=== PATIENT | female | born 1960 | race Hispanic/Latino ===

== ENCOUNTER → 2020-10-21 | Outpatient (CLI) | payer BC ==
[~2020-10-21] VITALS: Ht 157.5 cm; Wt 78.9 kg
[~2020-10-21] MED LIST: REGADENOSON 0.4 MG/5 ML PF SYG IVP SCH
== END | disposition home or self-care (01) ==
LOC: SHCH 08:49
PROVIDERS: ATTEND Internal Medicine Cardiovascular Disease
DX: R05 Cough (principal); R53.83 Other fatigue; R07.9 Chest pain, unspecified
CPT/HCPCS: 78452; 93017; 96374; A9500 ×2; J2785

== ENCOUNTER → 2021-06-03 | Outpatient (CLI) | payer BC | END | disposition home or self-care (01) | LOC: SHCH 08:14 | PROVIDERS: ATTEND Internal Medicine Cardiovascular Disease | DX: I10 Essential (primary) hypertension (principal) | CPT/HCPCS: 93975 ==

== ENCOUNTER 2022-02-19 16:35 | Inpatient (IN) | payer BC ==
[~2022-02-19] VITALS: Ht 157.5 cm; Wt 73.0 kg
[2022-02-19 17:21] LABS: BASOPHILS % (AUTO) 0.4 % (0.0-5.0); HEMATOCRIT 38.1 % (36-48); LYMPHOCYTES % (AUTO) 21.2 % (21.0-51.0); MEAN CORPUSCULAR HEMOGLOBIN 32.4 pg (27.0-33.0); MEAN CORPUSCULAR HGB CONC 33.3 g/dL (32.0-36.0); MEAN CORPUSCULAR VOLUME 97.2 fL (79-99); NEUTROPHILS % (AUTO) 67.1 % (40.0-77.0); PLATELET COUNT (AUTO) 235 K/uL (130-400); RED BLOOD CELL COUNT(AUTO) 3.92 MIL/uL (4.00-5.50); RED CELL DISTRIBUTION WIDTH 13.2 % (11.0-15.5); WHITE BLOOD COUNT (AUTO) 7.8 K/uL (4.8-10.8)
[2022-02-19 17:34] LABS: ALBUMIN 4.3 g/dL (3.5-5.0); CREATININE 1.8 mg/dL (0.5-1.5); POTASSIUM 4.9 mmol/L (3.5-5.1); TOTAL PROTEIN, SERUM 9.4 g/dL (6.0-8.3)
[2022-02-19] MEDS ORDERED: ACETAMINOPHEN 325 MG TAB PO PRN (20:00)
[2022-02-19] MEDS ORDERED: ACETAMINOPHEN WITH CODEINE 1 TAB TAB PO PRN (20:00)
[2022-02-19] MEDS: MORPHINE 2 MG SYG IVP PRN (21:00)
[2022-02-19] MEDS: ONDANSETRON 4MG INJ IVP PRN (21:01)
[2022-02-19 22:04] LABS: INR 0.93 (0.85-1.15); PROTHROMBIN TIME 10.1 SEC (9.6-11.6)
[2022-02-19] MEDS: 0.9%NACL 1000ML 1,000 ML IV SCH (22:59)
[2022-02-19 23:37] VITALS: BP 124/71
[2022-02-19] MEDS ORDERED: ASPI-1197 PO (23:38)
[2022-02-20] VITALS (27 sets, daily range): BP systolic 103–123; BP diastolic 57–89
[2022-02-20] MEDS ORDERED: NAPR-1023 PO (00:11)
[2022-02-20] MEDS ORDERED: AMLO-258 PO (00:11)
[2022-02-20] MEDS ORDERED: METO-409 PO (00:11)
[2022-02-20] MEDS ORDERED: ATOR40TA71 PO (00:12)
[2022-02-20] MEDS ORDERED: LISI20TA24 PO (00:12)
[2022-02-20] MEDS: MORPHINE 2 MG SYG IVP PRN ×3 (03:34→23:03)
[2022-02-20] MEDS ORDERED: ROPIVACAINE 0.5% 5MG/ML 30ML IJ ONE (07:28)
[2022-02-20] MEDS ORDERED: FAMOTIDINE 20MG TAB PO SCH (09:00)
[2022-02-20] MEDS: ENOXAPARIN SODIUM 40 MG/0.4 ML SYRINGE SQ SCH (09:00)
[2022-02-20] MEDS ORDERED: ACETAMINOPHEN WITH CODEINE 1 TAB TAB PO PRN (09:00)
[2022-02-20] MEDS ORDERED: ROCURONIUM 10MG/1ML SYR 10 MG/ML ML ONE (09:20)
[2022-02-20] MEDS ORDERED: PROPOFOL 10 MG/ML 20ML VIAL IV ONE (09:20)
[2022-02-20] MEDS ORDERED: MIDAZOLAM HCL 1 MG/ML 2ML VIAL ONE (09:20)
[2022-02-20] MEDS ORDERED: SUCCINYLCHOLINE 200MG/10ML SYR ONE (09:20)
[2022-02-20] MEDS ORDERED: FENTANYL CITRATE PF 50 MCG/1 ML 2ML VIAL ONE (09:21)
[2022-02-20] MEDS ORDERED: DEXAMETHASONE SOD PHOSPHATE 10MG/ML 1ML VIAL ONE (09:29)
[2022-02-20] MEDS ORDERED: EPHEDRINE SULFATE 50 MG/ML AMPULE ONE (10:25)
[2022-02-20] MEDS ORDERED: GLYCOPYRROLATE 1 MG/5 ML SYRINGE ONE (10:51)
[2022-02-20] MEDS ORDERED: NEOSTIGMINE 5MG/5ML SYR IV ONE (10:51)
[2022-02-20] MEDS ORDERED: DiphenhydrAMINE HCL 50 MG/ML VIAL IVP PRN (11:00)
[2022-02-20] MEDS ORDERED: MEPERIDINE-PF 25 MG/ML SYG ONE (11:42)
[2022-02-20] MEDS: ASPIRIN 81MG CHEW TAB PO SCH (14:39)
[2022-02-20] MEDS: FAMOTIDINE 20MG TAB PO SCH (14:39)
[2022-02-20] MEDS: ACETAMINOPHEN WITH CODEINE 1 TAB TAB PO PRN ×2 (14:40→19:51)
[2022-02-20] MEDS: METOPROLOL SUCCINATE 50 MG TAB.SR.24H PO SCH (14:46)
[2022-02-20] MEDS: 0.9%NACL 1000ML 1,000 ML IV SCH ×2 (14:47→23:03)
[2022-02-20] MEDS: AMLODIPINE 5 MG TAB PO SCH (14:47)
[2022-02-20] MEDS: CEFAZOLIN SODIUM 1 GM VIAL IVP SCH ×2 (16:43→23:03)
[2022-02-20] MEDS: LISINOPRIL 20 MG TABLET PO SCH (19:36)
[2022-02-20] MEDS: ATORVASTATIN 40 MG TABLET PO SCH (19:50)
[2022-02-21 00:09] VITALS: BP 110/77
[2022-02-21] MEDS: ACETAMINOPHEN WITH CODEINE 1 TAB TAB PO PRN ×4 (04:08→17:01)
[2022-02-21 04:31] VITALS: BP 127/70
[2022-02-21 04:44] LABS: BASOPHILS % (AUTO) 0.1 % (0.0-5.0); HEMATOCRIT 28.2 % (36-48); LYMPHOCYTES % (AUTO) 18.6 % (21.0-51.0); MEAN CORPUSCULAR HEMOGLOBIN 31.4 pg (27.0-33.0); MEAN CORPUSCULAR HGB CONC 31.6 g/dL (32.0-36.0); MEAN CORPUSCULAR VOLUME 99.6 fL (79-99); MONOCYTES % (AUTO) 11.7 % (3.0-13.0); NEUTROPHILS % (AUTO) 69.2 % (40.0-77.0); PLATELET COUNT (AUTO) 146 K/uL (130-400); RED BLOOD CELL COUNT(AUTO) 2.83 MIL/uL (4.00-5.50); WHITE BLOOD COUNT (AUTO) 7.8 K/uL (4.8-10.8)
[2022-02-21 05:01] LABS: ALBUMIN 3.2 g/dL (3.5-5.0); CREATININE 1.2 mg/dL (0.5-1.5); MAGNESIUM 1.6 mg/dL (1.80-2.40); POTASSIUM 3.9 mmol/L (3.5-5.1); TOTAL PROTEIN, SERUM 7.1 g/dL (6.0-8.3)
[2022-02-21 08:00] VITALS: BP 136/78
[2022-02-21] MEDS: FAMOTIDINE 20MG TAB PO SCH (08:12)
[2022-02-21] MEDS: ASPIRIN 81MG CHEW TAB PO SCH (08:12)
[2022-02-21] MEDS: ENOXAPARIN SODIUM 40 MG/0.4 ML SYRINGE SQ SCH (08:14)
[2022-02-21] MEDS: FERROUS FUMARATE 324 MG TABLET PO PRN (08:17)
[2022-02-21] MEDS: METOPROLOL SUCCINATE 50 MG TAB.SR.24H PO SCH (09:00)
[2022-02-21] MEDS: AMLODIPINE 5 MG TAB PO SCH (09:00)
[2022-02-21 12:00] VITALS: BP 148/82
[2022-02-21] MEDS: 0.9%NACL 1000ML 1,000 ML IV SCH (15:00)
[2022-02-21 16:00] VITALS: BP 133/91
[2022-02-21 20:00] VITALS: BP 145/85
[2022-02-21] MEDS: LISINOPRIL 20 MG TABLET PO SCH (20:39)
[2022-02-21] MEDS: ATORVASTATIN 40 MG TABLET PO SCH (20:39)
[2022-02-21] MEDS: MORPHINE 2 MG SYG IVP PRN (23:42)
[2022-02-22] VITALS: BP 124/63
[2022-02-22 04:00] VITALS: BP 121/74
[2022-02-22] MEDS: MORPHINE 2 MG SYG IVP PRN (04:54)
[2022-02-22 05:17] LABS: BASOPHILS % (AUTO) 0.4 % (0.0-5.0); EOSINOPHILS % (AUTO) 1.2 % (0.0-8.0); HEMATOCRIT 25.5 % (36-48); LYMPHOCYTES % (AUTO) 26.1 % (21.0-51.0); MEAN CORPUSCULAR HEMOGLOBIN 31.7 pg (27.0-33.0); MEAN CORPUSCULAR HGB CONC 32.2 g/dL (32.0-36.0); MEAN CORPUSCULAR VOLUME 98.5 fL (79-99); MONOCYTES % (AUTO) 10.6 % (3.0-13.0); NEUTROPHILS % (AUTO) 61.3 % (40.0-77.0); PLATELET COUNT (AUTO) 123 K/uL (130-400); RED BLOOD CELL COUNT(AUTO) 2.59 MIL/uL (4.00-5.50); RED CELL DISTRIBUTION WIDTH 12.8 % (11.0-15.5); WHITE BLOOD COUNT (AUTO) 7.3 K/uL (4.8-10.8)
[2022-02-22 05:43] LABS: CREATININE 0.9 mg/dL (0.5-1.5); MAGNESIUM 1.4 mg/dL (1.80-2.40); POTASSIUM 3.8 mmol/L (3.5-5.1); TOTAL PROTEIN, SERUM 6.8 g/dL (6.0-8.3)
[2022-02-22 07:30] VITALS: BP 133/70
[2022-02-22] MEDS: METOPROLOL SUCCINATE 50 MG TAB.SR.24H PO SCH (08:43)
[2022-02-22] MEDS: FAMOTIDINE 20MG TAB PO SCH (08:43)
[2022-02-22] MEDS: ASPIRIN 81MG CHEW TAB PO SCH (08:44)
[2022-02-22] MEDS: ENOXAPARIN SODIUM 40 MG/0.4 ML SYRINGE SQ SCH (08:44)
[2022-02-22] MEDS: FERROUS FUMARATE 324 MG TABLET PO PRN (08:44)
[2022-02-22] MEDS: AMLODIPINE 5 MG TAB PO SCH (09:00)
[2022-02-22] MEDS: MAGNESIUM 2GM PREMIX 50ML 50 ML IV SCH (09:33)
[2022-02-22 11:00] VITALS: BP 98/58
[2022-02-22 16:00] VITALS: BP 111/70
[2022-02-22] MEDS: HYDROCODONE/ACETAMINOPHEN 5/325 MG TAB PO PRN ×2 (16:06→21:28)
[2022-02-22 20:00] VITALS: BP 110/74
[2022-02-22] MEDS: ATORVASTATIN 40 MG TABLET PO SCH (21:28)
[2022-02-22] MEDS: DOCUSATE SODIUM 100 MG CAP PO SCH (21:28)
[2022-02-23] VITALS: BP 113/72
[2022-02-23 04:00] VITALS: BP 119/71
[2022-02-23 04:15] LABS: BASOPHILS % (AUTO) 0.3 % (0.0-5.0); EOSINOPHILS % (AUTO) 2.8 % (0.0-8.0); HEMATOCRIT 23.4 % (36-48); LYMPHOCYTES % (AUTO) 29.4 % (21.0-51.0); MEAN CORPUSCULAR HEMOGLOBIN 31.9 pg (27.0-33.0); MEAN CORPUSCULAR HGB CONC 32.5 g/dL (32.0-36.0); MEAN CORPUSCULAR VOLUME 98.3 fL (79-99); MONOCYTES % (AUTO) 14.7 % (3.0-13.0); NEUTROPHILS % (AUTO) 52.3 % (40.0-77.0); PLATELET COUNT (AUTO) 117 K/uL (130-400); RED BLOOD CELL COUNT(AUTO) 2.38 MIL/uL (4.00-5.50); RED CELL DISTRIBUTION WIDTH 12.9 % (11.0-15.5); WHITE BLOOD COUNT (AUTO) 5.7 K/uL (4.8-10.8)
[2022-02-23 04:37] LABS: ALBUMIN 2.5 g/dL (3.5-5.0); CREATININE 0.8 mg/dL (0.5-1.5); MAGNESIUM 1.9 mg/dL (1.80-2.40); POTASSIUM 3.6 mmol/L (3.5-5.1); TOTAL PROTEIN, SERUM 6.2 g/dL (6.0-8.3)
[2022-02-23] MEDS ORDERED: KCL 20 MEQ ERTAB PO ONE (05:19)
[2022-02-23] MEDS: MAGNESIUM 2GM PREMIX 50ML 50 ML IV SCH (05:21)
[2022-02-23] MEDS: HYDROCODONE/ACETAMINOPHEN 5/325 MG TAB PO PRN ×3 (05:56→23:31)
[2022-02-23 07:30] VITALS: BP 112/77
[2022-02-23] MEDS: ASPIRIN 81MG CHEW TAB PO SCH (09:32)
[2022-02-23] MEDS: FAMOTIDINE 20MG TAB PO SCH (09:32)
[2022-02-23] MEDS: DOCUSATE SODIUM 100 MG CAP PO SCH ×2 (09:32→20:24)
[2022-02-23] MEDS: POLYETHYLENE GLYCOL 3350 17 GM POWD.PACK PO SCH (09:33)
[2022-02-23] MEDS: FERROUS FUMARATE 324 MG TABLET PO PRN (09:37)
[2022-02-23] MEDS: ONDANSETRON 4MG INJ IVP PRN (10:07)
[2022-02-23] MEDS: ENOXAPARIN SODIUM 40 MG/0.4 ML SYRINGE SQ SCH (10:08)
[2022-02-23 11:00] VITALS: BP 108/78
[2022-02-23] MEDS ORDERED: APIX2.5T PO (13:16)
[2022-02-23 16:00] VITALS: BP 104/77
[2022-02-23] MEDS ORDERED: LACTULOSE 20 GM/30 ML UDCUP PO PRN (16:00)
[2022-02-23 19:00] VITALS: BP 123/82
[2022-02-23] MEDS: MORPHINE 4 MG SYG IVP PRN (20:24)
[2022-02-23] MEDS: APIXABAN 2.5 MG TABLET PO SCH (20:24)
[2022-02-23] MEDS: ATORVASTATIN 40 MG TABLET PO SCH (20:24)
[2022-02-24] VITALS: BP 111/81
[2022-02-24] MEDS: MORPHINE 4 MG SYG IVP PRN (00:36)
[2022-02-24 04:00] VITALS: BP 123/68
[2022-02-24 05:00] LABS: BASOPHILS % (AUTO) 0.2 % (0.0-5.0); HEMATOCRIT 21.8 % (36-48); MEAN CORPUSCULAR VOLUME 96.9 fL (79-99); MONOCYTES % (AUTO) 20.1 % (3.0-13.0); PLATELET COUNT (AUTO) 170 K/uL (130-400); RED BLOOD CELL COUNT(AUTO) 2.25 MIL/uL (4.00-5.50)
[2022-02-24 05:11] LABS: CREATININE 0.8 mg/dL (0.5-1.5); POTASSIUM 3.1 mmol/L (3.5-5.1)
[2022-02-24] MEDS ORDERED: POTASSIUM CHLORIDE 10% ELIXIR 20 MEQ/15 ML UDCUP PO PRN (05:30)
[2022-02-24] MEDS ORDERED: LIDOCAINE HCL-MPF 1% 2ML VIAL IV PRN (05:30)
[2022-02-24] MEDS ORDERED: POTASSIUM CHLORIDE 20MEQ/100ML 100 ML IV PRN (05:30)
[2022-02-24] MEDS: KCL 20 MEQ ERTAB PO PRN ×2 (05:50→06:32)
[2022-02-24] MEDS ORDERED: KCL 20 MEQ ERTAB PO SCH (06:30)
[2022-02-24 07:55] VITALS: BP 129/78
[2022-02-24] MEDS: FAMOTIDINE 20MG TAB PO SCH (08:37)
[2022-02-24] MEDS: APIXABAN 2.5 MG TABLET PO SCH (08:37)
[2022-02-24] MEDS: ASPIRIN 81MG CHEW TAB PO SCH (08:37)
[2022-02-24] MEDS: DOCUSATE SODIUM 100 MG CAP PO SCH (08:37)
[2022-02-24] MEDS: POLYETHYLENE GLYCOL 3350 17 GM POWD.PACK PO SCH (08:37)
[2022-02-24] MEDS: HYDROCODONE/ACETAMINOPHEN 5/325 MG TAB PO PRN (08:38)
[2022-02-24 11:11] VITALS: BP 121/76
== END 2022-02-24 12:59 | DRG 521 ==
LOC: EDH 16:35 → EDHIP 19:59 → 4BH 23:19 → 4DH 02-20 08:22
PROVIDERS: ADMIT Hospitalist; ATTEND Hospitalist
PROC: 0SRR0JZ Replacement of Right Hip Joint, Femoral Surface with Synthetic Substitute, Open Approach (ICD-10-PCS; principal; 2022-02-20 09:12)
DX: S72.001A Fracture of unspecified part of neck of right femur, initial encounter for closed fracture (principal); N17.0 Acute kidney failure with tubular necrosis; E78.00 Pure hypercholesterolemia, unspecified; D64.9 Anemia, unspecified; Z20.822 Contact with and (suspected) exposure to COVID-19; I10 Essential (primary) hypertension; W01.0XXA Fall on same level from slipping, tripping and stumbling without subsequent striking against object, initial encounter; Z91.81 History of falling; Z90.49 Acquired absence of other specified parts of digestive tract; Y93.89 Activity, other specified; Y92.89 Other specified places as the place of occurrence of the external cause; Y99.8 Other external cause status
CPT/HCPCS: 36415; 71045; 73503; 73700; 80048; 80053; 83735; 85025; 85610; 87635; 93005; 97039; C9803; G0378; J0330; J0690; J1100; J1200; J1650; J2175; J2250; J2270; J2405; J2704; J2710; J2795; J3010; J3475; J3490; J7120

== ENCOUNTER → 2022-02-19 | Outpatient (CLI) | payer BC ==
[~2022-02-19] MED LIST changes: +AMLO-258 PO; +ASPI-1197 PO; +ATOR40TA71 PO; +LISI20TA24 PO; +METO-409 PO; +NAPR-1023 PO; -REGADENOSON 0.4 MG/5 ML PF SYG IVP SCH
== END | disposition home or self-care (01) ==
LOC: RAH 15:09
PROVIDERS: ATTEND Obstetrics & Gynecology
DX: S70.01XA Contusion of right hip, initial encounter (principal); X58.XXXA Exposure to other specified factors, initial encounter; Y93.89 Activity, other specified; Y92.89 Other specified places as the place of occurrence of the external cause; Y99.8 Other external cause status
CPT/HCPCS: 73700

== ENCOUNTER 2022-03-26 20:31 | Emergency (ER) | payer BC ==
[~2022-03-26] VITALS: Ht 157.5 cm; Wt 70.8 kg
[~2022-03-26 20:31] MED LIST changes: +APIX2.5T PO
[2022-03-26 21:06] LABS: BASOPHILS % (AUTO) 0.4 % (0.0-5.0); EOSINOPHILS % (AUTO) 0.7 % (0.0-8.0); HEMATOCRIT 36.1 % (36-48); MEAN CORPUSCULAR HEMOGLOBIN 31.1 pg (27.0-33.0); MEAN CORPUSCULAR HGB CONC 32.7 g/dL (32.0-36.0); MEAN CORPUSCULAR VOLUME 95.3 fL (79-99); MONOCYTES % (AUTO) 9.5 % (3.0-13.0); NEUTROPHILS % (AUTO) 34.2 % (40.0-77.0); PLATELET COUNT (AUTO) 267 K/uL (130-400); RED BLOOD CELL COUNT(AUTO) 3.79 MIL/uL (4.00-5.50); WHITE BLOOD COUNT (AUTO) 8.3 K/uL (4.8-10.8)
[2022-03-26 21:24] LABS: CREATININE 0.7 mg/dL (0.5-1.5); POTASSIUM 3.4 mmol/L (3.5-5.1)
[2022-03-26 21:32] LABS: ALBUMIN 3.3 g/dL (3.5-5.0); TOTAL PROTEIN, SERUM 7.8 g/dL (6.0-8.3)
[2022-03-26] MEDS ORDERED: ASPIRIN 81MG CHEW TAB PO STA (23:07)
[2022-03-26] MEDS ORDERED: NITROGLYCERIN 1GM OINT 1 INCH/1GM TD ONE (23:30)
[2022-03-27] MEDS ORDERED: KETOROLAC 30MG VIAL (30MG/ML) IVP ONE
[2022-03-27 04:59] VITALS: BP 158/74
== END 2022-03-27 05:22 | disposition home or self-care (01) ==
LOC: EDH 20:31
DX: R07.89 Other chest pain (principal); M25.561 Pain in right knee; E78.00 Pure hypercholesterolemia, unspecified; I10 Essential (primary) hypertension; Z88.5 Allergy status to narcotic agent; Z88.8 Allergy status to other drugs, medicaments and biological substances; Z79.01 Long term (current) use of anticoagulants; Z79.1 Long term (current) use of non-steroidal anti-inflammatories (NSAID); Z79.82 Long term (current) use of aspirin
CPT/HCPCS: 36415; 71045; 80053; 84484; 85025; 93005; 96374; J1885

== ENCOUNTER 2022-08-31 14:01 | Emergency (ER) | payer BC ==
[~2022-08-31] VITALS: Ht 157.5 cm; Wt 76.2 kg
[2022-08-31] MEDS ORDERED: IBUP-2070 PO (15:17)
[2022-08-31 15:49] VITALS: BP 131/72
[2022-08-31] MEDS ORDERED: KETOROLAC 60 MG VIAL (30MG/ML) IM ONE (16:00)
== END 2022-08-31 16:07 | disposition home or self-care (01) ==
LOC: EDH 14:01
DX: S30.0XXA Contusion of lower back and pelvis, initial encounter (principal); S09.90XA Unspecified injury of head, initial encounter; E78.00 Pure hypercholesterolemia, unspecified; I10 Essential (primary) hypertension; Z79.01 Long term (current) use of anticoagulants; Z79.1 Long term (current) use of non-steroidal anti-inflammatories (NSAID); Z79.82 Long term (current) use of aspirin; Z79.899 Other long term (current) drug therapy; Z88.5 Allergy status to narcotic agent; Z88.8 Allergy status to other drugs, medicaments and biological substances; W01.0XXA Fall on same level from slipping, tripping and stumbling without subsequent striking against object, initial encounter; Y93.89 Activity, other specified; Y92.89 Other specified places as the place of occurrence of the external cause; Y99.8 Other external cause status
CPT/HCPCS: 99284; 70450; 72170; 72220; 96372; 93005; J1885

== ENCOUNTER 2022-09-05 17:28 | Emergency (ER) | payer BC ==
[~2022-09-05] VITALS: Ht 157.5 cm; Wt 72.6 kg
[~2022-09-05 17:28] MED LIST changes: +IBUP-2070 PO
[2022-09-05 17:56] LABS: BASOPHILS % (AUTO) 0.7 % (0.0-5.0); EOSINOPHILS % (AUTO) 0.3 % (0.0-8.0); HEMATOCRIT 35.7 % (36-48); LYMPHOCYTES % (AUTO) 16.6 % (21.0-51.0); MEAN CORPUSCULAR HGB CONC 34.2 g/dL (32.0-36.0); MEAN CORPUSCULAR VOLUME 96.5 fL (79-99); MONOCYTES % (AUTO) 15.2 % (3.0-13.0); NEUTROPHILS % (AUTO) 66.9 % (40.0-77.0); PLATELET COUNT (AUTO) 244 K/uL (130-400); RED CELL DISTRIBUTION WIDTH 14.4 % (11.0-15.5); WHITE BLOOD COUNT (AUTO) 7.1 K/uL (4.8-10.8)
[2022-09-05 18:12] LABS: POTASSIUM 3.1 mmol/L (3.5-5.1)
[2022-09-05 18:19] LABS: ALBUMIN 2.8 g/dL (3.5-5.0); TOTAL PROTEIN, SERUM 7.3 g/dL (6.0-8.3)
[2022-09-05 19:23] LABS: APPEARANCE,URINE CLOUDY (CLEAR); BILIRUBIN,URINE 1 mg/dL (NEGATIVE); COLOR,URINE DARK-YELLOW (YELLOW); GLUCOSE, URINE (UA) 30 mg/dL (NEGATIVE); KETONES,URINE 5 mg/dL (NEGATIVE); LEUKOCYTE ESTERASE ,URINE NEGATIVE Leu/uL (NEGATIVE); NITRATE,URINE NEGATIVE (NEGATIVE); OCCULT BLOOD,URINE NEGATIVE (NEGATIVE); PROTEIN,URINE 50 mg/dL (NEGATIVE); UROBILINOGEN,URINE 6 mg/dL (0.2-1.0)
[2022-09-05 19:26] LABS: MUCUS,URINE RARE LPF (None Seen)
[2022-09-05 21:57] VITALS: BP 136/80
== END 2022-09-05 22:01 | disposition left against medical advice (07) ==
LOC: EDH 17:28
DX: R74.8 Abnormal levels of other serum enzymes (principal); I10 Essential (primary) hypertension; E78.00 Pure hypercholesterolemia, unspecified; Z79.82 Long term (current) use of aspirin; Z90.49 Acquired absence of other specified parts of digestive tract; Z79.899 Other long term (current) drug therapy; Z88.5 Allergy status to narcotic agent; Z88.8 Allergy status to other drugs, medicaments and biological substances; Z91.040 Latex allergy status
CPT/HCPCS: 36415; 70450; 71045; 73522; 76705; 80053; 81001; 84484; 85025; 93005

== ENCOUNTER 2022-09-26 09:02 | Emergency (ER) | payer BC ==
[~2022-09-26] VITALS: Ht 157.5 cm; Wt 72.6 kg
[2022-09-26 09:11] VITALS: BP 171/103
[2022-09-26] MEDS ORDERED: KETOROLAC 60 MG VIAL (30MG/ML) IM ONE (10:00)
[2022-09-26] MEDS ORDERED: GABA300C PO (11:50)
[2022-09-26] MEDS ORDERED: GABAPENTIN 300 MG CAPSULE PO SCH (12:00)
== END 2022-09-26 12:06 | disposition home or self-care (01) ==
LOC: EDH 09:02
DX: B02.9 Zoster without complications (principal); B02.29 Other postherpetic nervous system involvement; I10 Essential (primary) hypertension; E78.00 Pure hypercholesterolemia, unspecified; Z90.89 Acquired absence of other organs; Z88.5 Allergy status to narcotic agent; Z88.8 Allergy status to other drugs, medicaments and biological substances; Z79.899 Other long term (current) drug therapy
CPT/HCPCS: 99283; 96372; J1885

== ENCOUNTER 2022-10-02 08:57 | Emergency (ER) | payer BC ==
[~2022-10-02] VITALS: Ht 157.5 cm; Wt 72.6 kg
[~2022-10-02 08:57] MED LIST changes: +GABA300C PO
[2022-10-02 12:07] VITALS: BP 158/89
== END 2022-10-02 12:40 | disposition home or self-care (01) ==
LOC: EDH 08:57
DX: B02.29 Other postherpetic nervous system involvement (principal); I10 Essential (primary) hypertension; E78.00 Pure hypercholesterolemia, unspecified; Z88.5 Allergy status to narcotic agent; Z88.8 Allergy status to other drugs, medicaments and biological substances; Z79.899 Other long term (current) drug therapy; Z90.89 Acquired absence of other organs

== ENCOUNTER 2022-10-09 02:52 | Emergency (ER) | payer BC ==
[~2022-10-09] VITALS: Ht 157.5 cm; Wt 72.6 kg
[2022-10-09] MEDS ORDERED: KETOROLAC 30MG VIAL (30MG/ML) ONE ×2 (05:37→06:23)
[2022-10-09] MEDS ORDERED: DIAZEPAM 5 MG TABLET ONE (05:37)
[2022-10-09] MEDS ORDERED: HYDROCODONE/ACETAMINOPHEN 5/325 MG TAB ONE ×2 (05:37→06:23)
[2022-10-09] MEDS ORDERED: KETOROLAC 30MG VIAL (30MG/ML) IM ONE (06:30)
[2022-10-09] MEDS ORDERED: HYDROCODONE/ACETAMINOPHEN 5/325 MG TAB PO ONE (06:30)
[2022-10-09 07:56] VITALS: BP 175/85
[2022-10-09] MEDS ORDERED: TRAMADOL HCL 50 MG TABLET PO SCH (09:00)
[2022-10-09] MEDS ORDERED: GABA-529 PO (09:17)
== END 2022-10-09 10:28 | disposition home or self-care (01) ==
LOC: EDH 02:52
DX: B02.29 Other postherpetic nervous system involvement (principal); I10 Essential (primary) hypertension; E78.00 Pure hypercholesterolemia, unspecified; Z88.5 Allergy status to narcotic agent; Z88.8 Allergy status to other drugs, medicaments and biological substances; Z79.899 Other long term (current) drug therapy; Z90.89 Acquired absence of other organs
CPT/HCPCS: 99284; 96372; J1885 ×2

== ENCOUNTER 2022-10-11 02:41 | Emergency (ER) | payer BC ==
[~2022-10-11] VITALS: Ht 157.5 cm; Wt 72.6 kg
[~2022-10-11 02:41] MED LIST changes: +GABA-529 PO
[2022-10-11 02:46] VITALS: BP 145/78
[2022-10-11] MEDS ORDERED: ACETAMINOPHEN 500 MG TABLET PO ONE (05:30)
== END 2022-10-11 05:50 | disposition home or self-care (01) ==
LOC: EDH 02:41
DX: B02.29 Other postherpetic nervous system involvement (principal); B02.9 Zoster without complications; I10 Essential (primary) hypertension; E78.00 Pure hypercholesterolemia, unspecified; Z79.82 Long term (current) use of aspirin; Z79.899 Other long term (current) drug therapy; Z90.49 Acquired absence of other specified parts of digestive tract; Z76.5 Malingerer [conscious simulation]; Z88.5 Allergy status to narcotic agent; Z88.8 Allergy status to other drugs, medicaments and biological substances; Z91.040 Latex allergy status; Z98.890 Other specified postprocedural states
CPT/HCPCS: 99282

== ENCOUNTER 2022-10-31 20:37 | Emergency (ER) | payer BC ==
[~2022-10-31] VITALS: Ht 157.5 cm; Wt 72.6 kg
[2022-10-31 22:00] LABS: BASOPHILS % (AUTO) 0.6 % (0.0-5.0); HEMATOCRIT 35.5 % (36-48); MEAN CORPUSCULAR HGB CONC 33.8 g/dL (32.0-36.0); MEAN CORPUSCULAR VOLUME 103.5 fL (79-99); MONOCYTES % (AUTO) 7.7 % (3.0-13.0); NEUTROPHILS % (AUTO) 80.5 % (40.0-77.0); PLATELET COUNT (AUTO) 311 K/uL (130-400); RED BLOOD CELL COUNT(AUTO) 3.43 MIL/uL (4.00-5.50); RED CELL DISTRIBUTION WIDTH 13.5 % (11.0-15.5)
[2022-10-31 22:18] LABS: ALANINE AMINOTRANSFERASE 60 U/L (12-78); ALBUMIN 3.3 g/dL (3.5-5.0); ASPARTATE AMINOTRANSFERASE 135 U/L (10-37); CARBON DIOXIDE 22 mmol/L (21-32); CREATINE KINASE, TOTAL 95 U/L (21-232); GLOMERULAR FILTR. RATE CALC 63 mL/min (>90); GLUCOSE,RANDOM 90 mg/dL (70-105); POTASSIUM 3.7 mmol/L (3.5-5.1); SODIUM SERUM 130 mmol/L (136-145); TOTAL PROTEIN, SERUM 8.3 g/dL (6.0-8.3); UREA NITROGEN, BLOOD 5 mg/dL (7-18)
[2022-10-31 22:39] LABS: ACETAMINOPHEN < 1 mcg/mL (10-30); CHLORIDE 89 mmol/L (101-111); SALICYLATE < 2.8 mg/dL (2.8-20.0)
[2022-10-31 22:56] LABS: APPEARANCE,URINE CLOUDY (CLEAR); BILIRUBIN,URINE NEGATIVE (NEGATIVE); COLOR,URINE YELLOW (YELLOW); GLUCOSE, URINE (UA) NEGATIVE (NEGATIVE); KETONES,URINE >=80 mg/dL (NEGATIVE); LEUKOCYTE ESTERASE ,URINE 25 Leu/uL (NEGATIVE); NITRATE,URINE NEGATIVE (NEGATIVE); OCCULT BLOOD,URINE NEGATIVE (NEGATIVE); PH,URINE 5.5 (5.0-8.0); PROTEIN,URINE 50 mg/dL (NEGATIVE)
[2022-10-31 23:02] LABS: BACTERIA,URINE RARE /HPF (None Seen); HYALINE CASTS, URINE 51-100 /LPF (0-1 /LPF); MUCUS,URINE MOD LPF (None Seen); SQUAMOUS EPITHELIAL CELL,UR MOD /HPF (0-2)
[2022-10-31 23:14] LABS: AMPHET/METH SCREEN,URINE NEGATIVE (NEGATIVE); BARBITURATE SCREEN, URINE NEGATIVE (NEGATIVE); BENZODIAZEPINES SCREEN,URINE NEGATIVE (NEGATIVE); CANNABINOID SCREEN,URINE NEGATIVE (NEGATIVE); COCAINE SCREEN,URINE NEGATIVE (NEGATIVE); OPIATE SCREEN,URINE POSITIVE (NEGATIVE); PHENCYCLIDINE SCREEN,URINE NEGATIVE (NEGATIVE)
[2022-10-31] MEDS ORDERED: 0.9%NACL 1000ML 2,000 ML IV ONE (23:30)
[2022-10-31] MEDS ORDERED: 0.9%NACL 1000ML 1,000 ML IV SCH ×2 (23:30)
[2022-10-31 23:52] VITALS: BP 143/81
== END 2022-11-01 00:44 | disposition home or self-care (01) ==
LOC: EDH 20:37
DX: E86.0 Dehydration (principal); I10 Essential (primary) hypertension; Z79.01 Long term (current) use of anticoagulants; Z79.82 Long term (current) use of aspirin; Z79.899 Other long term (current) drug therapy; Z88.5 Allergy status to narcotic agent; Z88.8 Allergy status to other drugs, medicaments and biological substances; Z90.49 Acquired absence of other specified parts of digestive tract
CPT/HCPCS: 99284; 96360; 70450; 96361; 82550; 80053; 80305; 85025; 81001; 36415; 93005; G0481; J7030

== ENCOUNTER 2022-11-19 00:51 | Inpatient (IN) | payer BC ==
[~2022-11-19] VITALS: Ht 158.8 cm; Wt 80.7 kg
[2022-11-19] MEDS ORDERED: ACETAMINOPHEN 325 MG TAB PO PRN ×2 (03:00)
[2022-11-19] MEDS ORDERED: POTASSIUM CHLORIDE 10% ELIXIR 20 MEQ/15 ML UDCUP PO PRN (03:00)
[2022-11-19] MEDS ORDERED: POTASSIUM CHLORIDE 20MEQ/100ML 100 ML IV PRN (03:00)
[2022-11-19] MEDS ORDERED: HYDROMORPHONE 1 MG INJ IV PRN (03:00)
[2022-11-19] MEDS ORDERED: ONDANSETRON 4MG INJ IV PRN (03:00)
[2022-11-19 03:15] VITALS: BP 121/79
[2022-11-19 03:18] LABS: BASOPHILS % (AUTO) 0.6 % (0.0-5.0); EOSINOPHILS % (AUTO) 0.1 % (0.0-8.0); HEMATOCRIT 36.1 % (36-48); LYMPHOCYTES % (AUTO) 20.5 % (21.0-51.0); MEAN CORPUSCULAR HEMOGLOBIN 34.3 pg (27.0-33.0); MEAN CORPUSCULAR HGB CONC 33.8 g/dL (32.0-36.0); MEAN CORPUSCULAR VOLUME 101.4 fL (79-99); MONOCYTES % (AUTO) 8.5 % (3.0-13.0); PLATELET COUNT (AUTO) 263 K/uL (130-400); RED BLOOD CELL COUNT(AUTO) 3.56 MIL/uL (4.00-5.50); RED CELL DISTRIBUTION WIDTH 13.3 % (11.0-15.5); WHITE BLOOD COUNT (AUTO) 8.7 K/uL (4.8-10.8)
[2022-11-19] MEDS ORDERED: PHARMACY COMMUNICATION MISC PRN (03:30)
[2022-11-19] MEDS ORDERED: LORAZEPAM 2 MG/ML 1 ML VIAL IVP PRN (03:30)
[2022-11-19 03:31] LABS: ALBUMIN 2.5 g/dL (3.5-5.0); CREATININE 0.9 mg/dL (0.5-1.5); MAGNESIUM 1.2 mg/dL (1.80-2.40); PHOSPHORUS 2.6 mg/dL (2.5-4.9); POTASSIUM 3.3 mmol/L (3.5-5.1); TOTAL PROTEIN, SERUM 6.7 g/dL (6.0-8.3)
[2022-11-19 03:37] LABS: INR 1.1 (0.85-1.15); PROTHROMBIN TIME 12.7 SEC (9.6-11.6)
[2022-11-19 03:38] LABS: PARTIAL THROMBOPLASTIN TIME 27.2 SEC (26.3-35.5)
[2022-11-19 03:42] LABS: B-TYPE NATRIURETIC PEPTIDE 191 pg/mL (0-100)
[2022-11-19 04:04] LABS: APPEARANCE,URINE CLEAR (CLEAR); BILIRUBIN,URINE NEGATIVE (NEGATIVE); COLOR,URINE YELLOW (YELLOW); GLUCOSE, URINE (UA) NEGATIVE (NEGATIVE); KETONES,URINE NEGATIVE (NEGATIVE); LEUKOCYTE ESTERASE ,URINE NEGATIVE Leu/uL (NEGATIVE); NITRATE,URINE NEGATIVE (NEGATIVE); OCCULT BLOOD,URINE NEGATIVE (NEGATIVE); PH,URINE 6.5 (5.0-8.0); PROTEIN,URINE NEGATIVE (NEGATIVE); UROBILINOGEN,URINE 3 mg/dL (0.2-1.0)
[2022-11-19 04:17] LABS: MUCUS,URINE RARE LPF (None Seen); RBC,URINE 0-1 /HPF (0-1); SQUAMOUS EPITHELIAL CELL,UR FEW /HPF (0-2)
[2022-11-19] MEDS: CHLORDIAZEPOXIDE HCL 25 MG CAP PO SCH ×3 (04:51→21:33)
[2022-11-19] MEDS: KCL 20 MEQ ERTAB PO PRN ×3 (04:55→13:55)
[2022-11-19] MEDS: MAGNESIUM 2GM PREMIX 50ML 50 ML IV PRN ×2 (04:56→07:28)
[2022-11-19 08:00] VITALS: BP 133/99
[2022-11-19] MEDS: FAMOTIDINE 20MG TAB PO SCH (08:08)
[2022-11-19] MEDS: ZOSYN 3.375GM+NS 50ML 50 ML IVPB SCH ×3 (08:08→20:43)
[2022-11-19] MEDS: ENOXAPARIN SODIUM 40 MG/0.4 ML SYRINGE SQ SCH (08:08)
[2022-11-19] MEDS: THIAMINE HCL 100 MG, FOLIC ACID 1 MG, M.V.I. IV [ADULT] 10 ML in 0.9%NACL 1000ML 1,000 ML IV SCH (09:38)
[2022-11-19] MEDS: HYDROCODONE/ACETAMINOPHEN 5/325 MG TAB PO PRN (09:46)
[2022-11-19 11:27] VITALS: BP 131/79
[2022-11-19 16:32] VITALS: BP 128/96
[2022-11-19 19:00] VITALS: BP 140/97
[2022-11-19] MEDS ORDERED: HYDROMORPHONE 0.5 MG SYG (0.5MG/0.5ML) ONE (23:29)
[2022-11-19] MEDS ORDERED: HYDROMORPHONE 0.5 MG SYG (0.5MG/0.5ML) IVP PRN (23:30)
[2022-11-20] VITALS: BP 158/54
[2022-11-20] MEDS: CHLORDIAZEPOXIDE HCL 25 MG CAP PO SCH ×3 (03:57→19:54)
[2022-11-20 04:00] VITALS: BP 149/92
[2022-11-20] MEDS: 0.9%NACL 1000ML 1,000 ML IV SCH ×2 (04:00→15:56)
[2022-11-20] MEDS: ZOSYN 3.375GM+NS 50ML 50 ML IVPB SCH ×3 (05:10→21:31)
[2022-11-20 06:39] LABS: BASOPHILS % (AUTO) 0.5 % (0.0-5.0); EOSINOPHILS % (AUTO) 1.2 % (0.0-8.0); HEMATOCRIT 34.7 % (36-48); LYMPHOCYTES % (AUTO) 33.3 % (21.0-51.0); MEAN CORPUSCULAR HEMOGLOBIN 34.2 pg (27.0-33.0); MEAN CORPUSCULAR HGB CONC 32.6 g/dL (32.0-36.0); MEAN CORPUSCULAR VOLUME 105.2 fL (79-99); NEUTROPHILS % (AUTO) 55.6 % (40.0-77.0); PLATELET COUNT (AUTO) 206 K/uL (130-400); RED CELL DISTRIBUTION WIDTH 13.3 % (11.0-15.5); WHITE BLOOD COUNT (AUTO) 7.3 K/uL (4.8-10.8)
[2022-11-20 06:48] LABS: CREATININE 0.7 mg/dL (0.5-1.5); POTASSIUM 3.1 mmol/L (3.5-5.1)
[2022-11-20 07:43] VITALS: BP 143/92
[2022-11-20] MEDS: FAMOTIDINE 20MG TAB PO SCH (08:03)
[2022-11-20] MEDS: ENOXAPARIN SODIUM 40 MG/0.4 ML SYRINGE SQ SCH (08:04)
[2022-11-20] MEDS: KCL 20 MEQ ERTAB PO PRN ×3 (09:11→13:02)
[2022-11-20] MEDS: THIAMINE HCL 100 MG, FOLIC ACID 1 MG, M.V.I. IV [ADULT] 10 ML in 0.9%NACL 1000ML 1,000 ML IV SCH (09:11)
[2022-11-20] MEDS: MAGNESIUM 2GM PREMIX 50ML 50 ML IV PRN (11:10)
[2022-11-20 11:23] VITALS: BP 162/101
[2022-11-20 16:40] VITALS: BP 159/102
[2022-11-20] MEDS ORDERED: LORAZEPAM 2 MG/ML 1 ML VIAL IVP ONE (23:00)
[2022-11-21] VITALS: BP 125/75
[2022-11-21] MEDS: CHLORDIAZEPOXIDE HCL 25 MG CAP PO SCH ×2 (03:14→11:30)
[2022-11-21] MEDS: HYDROCODONE/ACETAMINOPHEN 5/325 MG TAB PO PRN ×2 (03:14→19:50)
[2022-11-21] MEDS: THIAMINE HCL 100 MG, FOLIC ACID 1 MG, M.V.I. IV [ADULT] 10 ML in 0.9%NACL 1000ML 1,000 ML IV SCH (03:30)
[2022-11-21 04:01] VITALS: BP 157/89
[2022-11-21] MEDS: ZOSYN 3.375GM+NS 50ML 50 ML IVPB SCH ×3 (05:34→19:50)
[2022-11-21] MEDS: 0.9%NACL 1000ML 1,000 ML IV SCH ×3 (07:30→19:53)
[2022-11-21 08:00] VITALS: BP 145/100
[2022-11-21] MEDS: FAMOTIDINE 20MG TAB PO SCH (08:54)
[2022-11-21] MEDS: ENOXAPARIN SODIUM 40 MG/0.4 ML SYRINGE SQ SCH (08:57)
[2022-11-21] MEDS: AMLODIPINE 5 MG TAB PO SCH (08:59)
[2022-11-21] MEDS ORDERED: NON-FORMULARY MEDICATION 1 EACH (Amlodipine Besylate 1 TAB) PO SCH (09:00)
[2022-11-21 12:00] VITALS: BP 157/86
[2022-11-21] MEDS ORDERED: CHLORDIAZEPOXIDE HCL 25 MG CAP PO PRN ×2 (12:00)
[2022-11-21] MEDS ORDERED: LORAZEPAM 2 MG/ML 1 ML VIAL IVP PRN (12:00)
[2022-11-21] MEDS ORDERED: PHARMACY COMMUNICATION MISC PRN (12:00)
[2022-11-21 16:00] VITALS: BP 123/86
[2022-11-21] MEDS: LISINOPRIL 20 MG TABLET PO SCH (19:49)
[2022-11-21 20:00] VITALS: BP 134/83
[2022-11-22] VITALS (7 sets, daily range): BP systolic 112–150; BP diastolic 66–107
[2022-11-22 04:06] LABS: BASOPHILS % (AUTO) 0.5 % (0.0-5.0); EOSINOPHILS % (AUTO) 2.3 % (0.0-8.0); HEMATOCRIT 30.4 % (36-48); LYMPHOCYTES % (AUTO) 32.5 % (21.0-51.0); MEAN CORPUSCULAR HEMOGLOBIN 33.9 pg (27.0-33.0); MEAN CORPUSCULAR HGB CONC 31.9 g/dL (32.0-36.0); MEAN CORPUSCULAR VOLUME 106.3 fL (79-99); MONOCYTES % (AUTO) 10.2 % (3.0-13.0); NEUTROPHILS % (AUTO) 54.2 % (40.0-77.0); PLATELET COUNT (AUTO) 179 K/uL (130-400); RED BLOOD CELL COUNT(AUTO) 2.86 MIL/uL (4.00-5.50); RED CELL DISTRIBUTION WIDTH 13.9 % (11.0-15.5); WHITE BLOOD COUNT (AUTO) 6.2 K/uL (4.8-10.8)
[2022-11-22 04:16] LABS: CARBON DIOXIDE 27 mmol/L (21-32); CHLORIDE 107 mmol/L (101-111); CREATININE 0.7 mg/dL (0.5-1.5); GLOMERULAR FILTR. RATE CALC 97 mL/min (>90); GLUCOSE,RANDOM 82 mg/dL (70-105); PHOSPHORUS 2.8 mg/dL (2.5-4.9); POTASSIUM 3.8 mmol/L (3.5-5.1); SODIUM SERUM 137 mmol/L (136-145)
[2022-11-22] MEDS: 0.9%NACL 1000ML 1,000 ML IV SCH ×3 (04:19→21:19)
[2022-11-22] MEDS: ZOSYN 3.375GM+NS 50ML 50 ML IVPB SCH ×3 (04:19→20:59)
[2022-11-22] MEDS: KCL 20 MEQ ERTAB PO PRN ×2 (05:24→08:30)
[2022-11-22] MEDS: MAGNESIUM 2GM PREMIX 50ML 50 ML IV PRN (05:24)
[2022-11-22] MEDS: HYDROCODONE/ACETAMINOPHEN 5/325 MG TAB PO PRN ×2 (05:25→21:02)
[2022-11-22 06:07] LABS: UREA NITROGEN, BLOOD < 5 mg/dL (7-18)
[2022-11-22] MEDS: AMLODIPINE 5 MG TAB PO SCH (08:30)
[2022-11-22] MEDS: FAMOTIDINE 20MG TAB PO SCH (08:31)
[2022-11-22] MEDS: ENOXAPARIN SODIUM 40 MG/0.4 ML SYRINGE SQ SCH (08:32)
[2022-11-22] MEDS: LISINOPRIL 20 MG TABLET PO SCH (20:38)
[2022-11-23 00:34] LABS: AMPHET/METH SCREEN,URINE NEGATIVE (NEGATIVE); BARBITURATE SCREEN, URINE NEGATIVE (NEGATIVE); BENZODIAZEPINES SCREEN,URINE POSITIVE (NEGATIVE); CANNABINOID SCREEN,URINE NEGATIVE (NEGATIVE); COCAINE SCREEN,URINE NEGATIVE (NEGATIVE); OPIATE SCREEN,URINE NEGATIVE (NEGATIVE); PHENCYCLIDINE SCREEN,URINE NEGATIVE (NEGATIVE)
[2022-11-23] MEDS: 0.9%NACL 1000ML 1,000 ML IV SCH (02:38)
[2022-11-23 03:36] VITALS: BP 147/97
[2022-11-23] MEDS: ZOSYN 3.375GM+NS 50ML 50 ML IVPB SCH (04:09)
[2022-11-23 05:29] LABS: BASOPHILS % (AUTO) 0.5 % (0.0-5.0); EOSINOPHILS % (AUTO) 3.2 % (0.0-8.0); HEMATOCRIT 30.1 % (36-48); MEAN CORPUSCULAR HEMOGLOBIN 34.3 pg (27.0-33.0); MEAN CORPUSCULAR HGB CONC 32.6 g/dL (32.0-36.0); MEAN CORPUSCULAR VOLUME 105.2 fL (79-99); MONOCYTES % (AUTO) 13.1 % (3.0-13.0); PLATELET COUNT (AUTO) 203 K/uL (130-400); RED BLOOD CELL COUNT(AUTO) 2.86 MIL/uL (4.00-5.50); RED CELL DISTRIBUTION WIDTH 14.4 % (11.0-15.5); WHITE BLOOD COUNT (AUTO) 5.9 K/uL (4.8-10.8)
[2022-11-23 05:34] LABS: INR 0.96 (0.85-1.15); PROTHROMBIN TIME 11.2 SEC (9.6-11.6)
[2022-11-23 05:35] LABS: PARTIAL THROMBOPLASTIN TIME 26.9 SEC (26.3-35.5)
[2022-11-23 05:46] LABS: CREATININE 0.8 mg/dL (0.5-1.5)
[2022-11-23] MEDS: HYDROCODONE/ACETAMINOPHEN 5/325 MG TAB PO PRN (06:58)
[2022-11-23 08:00] VITALS: BP 182/101
[2022-11-23] MEDS: AMLODIPINE 5 MG TAB PO SCH (08:52)
[2022-11-23] MEDS: FAMOTIDINE 20MG TAB PO SCH (08:52)
[2022-11-23] MEDS: ENOXAPARIN SODIUM 40 MG/0.4 ML SYRINGE SQ SCH (09:05)
[2022-11-23 11:48] VITALS: BP 144/86
== END 2022-11-23 13:00 | disposition home or self-care (01) | DRG 871 ==
LOC: 4DH 02:19
PROVIDERS: ADMIT Internal Medicine; ATTEND Internal Medicine
DX: A41.9 Sepsis, unspecified organism (principal); G93.41 Metabolic encephalopathy; E87.20 Acidosis, unspecified; F10.239 Alcohol dependence with withdrawal, unspecified; E87.1 Hypo-osmolality and hyponatremia; F14.10 Cocaine abuse, uncomplicated; D53.9 Nutritional anemia, unspecified; E78.5 Hyperlipidemia, unspecified; E83.42 Hypomagnesemia; E87.6 Hypokalemia; I10 Essential (primary) hypertension; I25.10 Atherosclerotic heart disease of native coronary artery without angina pectoris; Z79.82 Long term (current) use of aspirin; Z86.73 Personal history of transient ischemic attack (TIA), and cerebral infarction without residual deficits; Z90.710 Acquired absence of both cervix and uterus
CPT/HCPCS: 36415; 70450; 71045; 73630; 80048; 80053; 80305; 81001; 83605; 83735; 83880; 84100; 84145; 84550; 85025; 85610; 85730; 87040; 87088; 93005; C1894; G0378; J1170; J1650; J2060; J2405; J2543; J3411; J3475; J3490; J7030

== ENCOUNTER 2023-01-11 03:23 | Emergency (ER) | payer BC ==
[~2023-01-11 03:23] MED LIST changes: -GABA-529 PO; -NAPR-1023 PO
[2023-01-11 03:53] LABS: BASOPHILS # (AUTO) 0.05 K/uL (0.00-0.20); BASOPHILS % (AUTO) 0.7 % (0.0-5.0); EOSINOPHILS # (AUTO) 0.04 K/uL (0.00-0.70); EOSINOPHILS % (AUTO) 0.5 % (0.0-8.0); HEMATOCRIT 30.9 % (36-48); IMMATURE GRANULOCYTE ABSOLUTE 0.02 K/uL (0-1); LYMPHOCYTES # (AUTO) 1.5 K/uL (1.0-4.8); LYMPHOCYTES % (AUTO) 19.4 % (21.0-51.0); MEAN CORPUSCULAR HEMOGLOBIN 34.2 pg (27.0-33.0); MEAN CORPUSCULAR HGB CONC 34.6 g/dL (32.0-36.0); MEAN CORPUSCULAR VOLUME 98.7 fL (79-99); MONOCYTES % (AUTO) 12.5 % (3.0-13.0); NEUTROPHILS # (AUTO) 5.1 K/uL (1.8-7.7); NEUTROPHILS % (AUTO) 66.6 % (40.0-77.0); PLATELET COUNT (AUTO) 282 K/uL (130-400); RED BLOOD CELL COUNT(AUTO) 3.13 MIL/uL (4.00-5.50); RED CELL DISTRIBUTION WIDTH 16.6 % (11.0-15.5); WHITE BLOOD COUNT (AUTO) 7.6 K/uL (4.8-10.8)
[2023-01-11 04:08] LABS: ALBUMIN 2.6 g/dL (3.5-5.0); BILIRUBIN,TOTAL 4.7 mg/dL (0.2-1.0); CREATININE 0.8 mg/dL (0.5-1.5); TOTAL PROTEIN, SERUM 7.6 g/dL (6.0-8.3)
[2023-01-11 04:11] LABS: POTASSIUM 2.7 mmol/L (3.5-5.1)
[2023-01-11] MEDS ORDERED: 0.9%NACL 1000ML 1,000 ML IV ONE (04:30)
[2023-01-11] MEDS ORDERED: POTASSIUM BICARB/CIT AC 25 MEQ TABLET.EFF PO ONE (04:30)
[2023-01-11] MEDS ORDERED: ONDANSETRON 4MG INJ IVP ONE (04:30)
[2023-01-11] MEDS ORDERED: DIAZEPAM 5 MG/ML 2 ML SYG IVP ONE (06:00)
[2023-01-11] MEDS ORDERED: FAMOTIDINE 20MG VIAL IV ONE (06:00)
[2023-01-11] MEDS ORDERED: ACETAMINOPHEN 500 MG TABLET PO ONE (06:00)
[2023-01-11] MEDS ORDERED: LACTATED RINGERS 1000ML 1,000 ML IV ONE (06:00)
[2023-01-11 06:26] LABS: MAGNESIUM 1.5 mg/dL (1.80-2.40); THYROID STIMULATING HORMONE 1.13 uIU/mL (0.36-3.74)
[2023-01-11] MEDS ORDERED: MAGNESIUM OXIDE 400 MG TABLET PO ONE (07:00)
[2023-01-11 13:54] VITALS: BP 132/80; PULSE 80; RESP 16; O2SAT 98
[2023-01-11] MEDS ORDERED: POTA-200 PO (14:00)
[2023-01-11] MEDS ORDERED: MAGN240P PO (14:03)
== END 2023-01-11 14:38 | disposition home or self-care (01) ==
LOC: EDH 03:23
DX: M25.551 Pain in right hip (principal); E87.6 Hypokalemia; E78.00 Pure hypercholesterolemia, unspecified; I10 Essential (primary) hypertension; F10.20 Alcohol dependence, uncomplicated; Z79.01 Long term (current) use of anticoagulants; Z79.82 Long term (current) use of aspirin; Z79.899 Other long term (current) drug therapy; Z88.5 Allergy status to narcotic agent; Z88.8 Allergy status to other drugs, medicaments and biological substances; Z90.49 Acquired absence of other specified parts of digestive tract
CPT/HCPCS: 99284; 96374; 96361; 96375; 84443; 83735; 84132; 80053; 83690; 85025; 36415; 73502; J7120; J3490; J7030; J3360; J2405

== ENCOUNTER 2023-03-11 13:55 | Emergency (ER) | payer OTHER, MEDICARE ==
[~2023-03-11] VITALS: Ht 167.6 cm; Wt 72.6 kg
[~2023-03-11 13:55] MED LIST changes: +MAGN240P PO; +POTA-200 PO
[2023-03-11] MEDS ORDERED: DIAZEPAM 5 MG/ML 2 ML SYG IVP ONE (15:30)
[2023-03-11] MEDS ORDERED: FAMOTIDINE 20MG VIAL IV ONE (15:30)
[2023-03-11] MEDS ORDERED: KETOROLAC 30MG VIAL (30MG/ML) IVP ONE (15:30)
[2023-03-11] MEDS ORDERED: METOCLOPRAMIDE 10 MG/2 ML VIAL IVP ONE (15:30)
[2023-03-11 15:57] LABS: BASOPHILS # (AUTO) 0.04 K/uL (0.00-0.20); BASOPHILS % (AUTO) 0.3 % (0.0-5.0); EOSINOPHILS % (AUTO) 0.8 % (0.0-8.0); HEMATOCRIT 29.8 % (36-48); IMMATURE GRANULOCYTE ABSOLUTE 0.04 K/uL (0-1); LYMPHOCYTES # (AUTO) 2.7 K/uL (1.0-4.8); LYMPHOCYTES % (AUTO) 23.2 % (21.0-51.0); MEAN CORPUSCULAR HEMOGLOBIN 34.4 pg (27.0-33.0); MEAN CORPUSCULAR HGB CONC 33.2 g/dL (32.0-36.0); MEAN CORPUSCULAR VOLUME 103.5 fL (79-99); MONOCYTES # (AUTO) 1.5 K/uL (0.1-1.0); NEUTROPHILS # (AUTO) 7.3 K/uL (1.8-7.7); NEUTROPHILS % (AUTO) 62.4 % (40.0-77.0); PLATELET COUNT (AUTO) 268 K/uL (130-400); RED BLOOD CELL COUNT(AUTO) 2.88 MIL/uL (4.00-5.50); RED CELL DISTRIBUTION WIDTH 14.4 % (11.0-15.5); WHITE BLOOD COUNT (AUTO) 11.8 K/uL (4.8-10.8)
[2023-03-11] MEDS ORDERED: MELO-106 PO (16:21)
[2023-03-11 16:22] LABS: CREATININE 0.8 mg/dL (0.5-1.5); POTASSIUM 3.3 mmol/L (3.5-5.1)
[2023-03-11 16:24] VITALS: BP 112/61; PULSE 89; RESP 16; O2SAT 98
[2023-03-11 17:20] LABS: ADD UA MICROSCOPIC YES; APPEARANCE,URINE HAZY (CLEAR); BILIRUBIN,URINE NEGATIVE (NEGATIVE); COLOR,URINE YELLOW (YELLOW); GLUCOSE, URINE (UA) TRACE mg/dL (NEGATIVE); KETONES,URINE NEGATIVE (NEGATIVE); LEUKOCYTE ESTERASE ,URINE 500 Leu/uL (NEGATIVE); NITRATE,URINE 2+ (NEGATIVE); OCCULT BLOOD,URINE NEGATIVE (NEGATIVE); PH,URINE 5.5 (5.0-8.0); PROTEIN,URINE 30 mg/dL (NEGATIVE); UROBILINOGEN,URINE 0.2 mg/dL (0.2-1.0)
[2023-03-11 17:28] LABS: BACTERIA,URINE MOD /HPF (None Seen); MUCUS,URINE RARE LPF (None Seen); SQUAMOUS EPITHELIAL CELL,UR RARE /HPF (0-2); WBC,URINE TNTC /HPF (0-1)
[2023-03-11 17:36] LABS: COVID19 (SARS ANTIGEN RAPID) PRESUMPTIVE NEGATIVE (NEGATIVE); INFLUENZA TYPE A Negative For Type A (NEGATIVE); INFLUENZA TYPE B Negative For Type B (NEGATIVE)
[2023-03-11] MEDS ORDERED: CEPH500B PO (18:13)
[2023-03-11] MEDS ORDERED: CEPHALEXIN 500 MG CAPSULE PO ONE (18:30)
== END 2023-03-11 18:24 | disposition home or self-care (01) ==
LOC: EDH 13:55
DX: M25.551 Pain in right hip (principal); E78.00 Pure hypercholesterolemia, unspecified; I10 Essential (primary) hypertension; Z79.01 Long term (current) use of anticoagulants; Z79.82 Long term (current) use of aspirin; Z79.899 Other long term (current) drug therapy; Z88.5 Allergy status to narcotic agent; Z88.8 Allergy status to other drugs, medicaments and biological substances; Z20.822 Contact with and (suspected) exposure to COVID-19
CPT/HCPCS: 99284; 96374; 96375; 71045; 87426; 80048; 85025; 87077; 87088; 87186; 87804 ×2; 81001; 36415; 73502; 73660; J3490; J3360; J1885; J2765

== ENCOUNTER 2023-03-27 19:47 | Emergency (ER) | payer OTHER, MEDICARE ==
[~2023-03-27] VITALS: Ht 157.5 cm; Wt 65.8 kg
[~2023-03-27 19:47] MED LIST changes: +CEPH500B PO; +MELO-106 PO
[2023-03-27 22:18] LABS: BASOPHILS # (AUTO) 0.05 K/uL (0.00-0.20); BASOPHILS % (AUTO) 0.6 % (0.0-5.0); EOSINOPHILS # (AUTO) 0.08 K/uL (0.00-0.70); HEMATOCRIT 31.8 % (36-48); IMMATURE GRANULOCYTE ABSOLUTE 0.02 K/uL (0-1); LYMPHOCYTES # (AUTO) 3.3 K/uL (1.0-4.8); LYMPHOCYTES % (AUTO) 39.7 % (21.0-51.0); MEAN CORPUSCULAR HEMOGLOBIN 33.5 pg (27.0-33.0); MEAN CORPUSCULAR HGB CONC 33.6 g/dL (32.0-36.0); MEAN CORPUSCULAR VOLUME 99.7 fL (79-99); MONOCYTES # (AUTO) 0.8 K/uL (0.1-1.0); MONOCYTES % (AUTO) 9.4 % (3.0-13.0); NEUTROPHILS # (AUTO) 4.1 K/uL (1.8-7.7); NEUTROPHILS % (AUTO) 49.1 % (40.0-77.0); PLATELET COUNT (AUTO) 256 K/uL (130-400); RED BLOOD CELL COUNT(AUTO) 3.19 MIL/uL (4.00-5.50); RED CELL DISTRIBUTION WIDTH 14.4 % (11.0-15.5); WHITE BLOOD COUNT (AUTO) 8.3 K/uL (4.8-10.8)
[2023-03-27 22:39] LABS: CREATININE 0.7 mg/dL (0.5-1.5); POTASSIUM 3.3 mmol/L (3.5-5.1)
[2023-03-27 22:46] LABS: BILIRUBIN,TOTAL 1.3 mg/dL (0.2-1.0); TOTAL PROTEIN, SERUM 7.6 g/dL (6.0-8.3); URIC ACID 5.5 mg/dL (2.6-7.2)
[2023-03-27] MEDS ORDERED: ONDANSETRON 4MG INJ ONE (23:47)
[2023-03-27 23:52] VITALS: BP 155/90; PULSE 82; RESP 16; O2SAT 97
[2023-03-28] MEDS ORDERED: ONDANSETRON 4MG INJ IVP ONE
== END 2023-03-28 00:43 | disposition home or self-care (01) ==
LOC: EDH 19:47
DX: M79.671 Pain in right foot (principal); G62.9 Polyneuropathy, unspecified; R07.89 Other chest pain; E78.00 Pure hypercholesterolemia, unspecified; I10 Essential (primary) hypertension; Z79.01 Long term (current) use of anticoagulants; Z79.1 Long term (current) use of non-steroidal anti-inflammatories (NSAID); Z79.82 Long term (current) use of aspirin; Z79.899 Other long term (current) drug therapy; Z88.5 Allergy status to narcotic agent; Z88.8 Allergy status to other drugs, medicaments and biological substances; Z90.49 Acquired absence of other specified parts of digestive tract; Z91.041 Radiographic dye allergy status
CPT/HCPCS: 99284; 96374; 71045; 84484; 84550; 80053; 85025; 85651; 36415; 73600; 73630; J2405

== ENCOUNTER 2023-04-03 15:05 | Emergency (ER) | payer OTHER, MEDICARE ==
[~2023-04-03] VITALS: Ht 157.5 cm; Wt 70.3 kg
[2023-04-03] MEDS ORDERED: LACTATED RINGERS 1000ML 1,000 ML IV ONE (17:30)
[2023-04-03 17:37] LABS: BASOPHILS # (AUTO) 0.05 K/uL (0.00-0.20); BASOPHILS % (AUTO) 0.6 % (0.0-5.0); EOSINOPHILS # (AUTO) 0.12 K/uL (0.00-0.70); EOSINOPHILS % (AUTO) 1.5 % (0.0-8.0); HEMATOCRIT 32.8 % (36-48); IMMATURE GRANULOCYTE ABSOLUTE 0.03 K/uL (0-1); LYMPHOCYTES # (AUTO) 3.9 K/uL (1.0-4.8); LYMPHOCYTES % (AUTO) 47.8 % (21.0-51.0); MEAN CORPUSCULAR HGB CONC 32.6 g/dL (32.0-36.0); MEAN CORPUSCULAR VOLUME 101.2 fL (79-99); MONOCYTES # (AUTO) 0.8 K/uL (0.1-1.0); MONOCYTES % (AUTO) 9.9 % (3.0-13.0); NEUTROPHILS # (AUTO) 3.3 K/uL (1.8-7.7); NEUTROPHILS % (AUTO) 39.8 % (40.0-77.0); PLATELET COUNT (AUTO) 274 K/uL (130-400); RED BLOOD CELL COUNT(AUTO) 3.24 MIL/uL (4.00-5.50); RED CELL DISTRIBUTION WIDTH 13.9 % (11.0-15.5); WHITE BLOOD COUNT (AUTO) 8.2 K/uL (4.8-10.8)
[2023-04-03 17:47] LABS: CREATININE 0.8 mg/dL (0.5-1.5); POTASSIUM 3.7 mmol/L (3.5-5.1)
[2023-04-03 17:51] LABS: ALBUMIN 2.1 g/dL (3.5-5.0); BILIRUBIN,TOTAL 0.9 mg/dL (0.2-1.0); TOTAL PROTEIN, SERUM 7.7 g/dL (6.0-8.3)
[2023-04-03 21:30] VITALS: BP 136/73; PULSE 86; RESP 16; O2SAT 98
== END 2023-04-03 21:39 | disposition home or self-care (01) ==
LOC: EDH 15:05
DX: R53.1 Weakness (principal); F10.129 Alcohol abuse with intoxication, unspecified; I10 Essential (primary) hypertension; Z79.01 Long term (current) use of anticoagulants; Z79.1 Long term (current) use of non-steroidal anti-inflammatories (NSAID); Z79.82 Long term (current) use of aspirin; Z79.899 Other long term (current) drug therapy; Z88.5 Allergy status to narcotic agent; Z88.8 Allergy status to other drugs, medicaments and biological substances; Z90.49 Acquired absence of other specified parts of digestive tract
CPT/HCPCS: 99284; 96360; 71045; 96361; 80053; 83690; 85025; 83605 ×2; 36415; J7120

== ENCOUNTER 2023-04-07 03:02 | Emergency (ER) | payer OTHER, MEDICARE ==
[~2023-04-07] VITALS: Ht 157.5 cm; Wt 60.3 kg
[2023-04-07 03:30] LABS: RAPID GROUP A STREP negative (NEGATIVE)
[2023-04-07 03:36] LABS: SARS-CoV-2, RNA, NAAT NEGATIVE SARS CoV-2 (NEGATIVE)
[2023-04-07 03:40] LABS: INFLUENZA TYPE A Negative For Type A (NEGATIVE); INFLUENZA TYPE B Negative For Type B (NEGATIVE)
[2023-04-07] MEDS ORDERED: IPRATROPIUM/ALBUTEROL SULFATE 3 ML SOLUTION IH ONE ×2 (04:00→04:30)
[2023-04-07] MEDS ORDERED: SOLU-MEDROL 125MG VIAL IVP ONE (04:00)
[2023-04-07] MEDS ORDERED: AZIT500T2 PO (04:10)
[2023-04-07] MEDS ORDERED: GUAI1TBM19 PO (04:10)
[2023-04-07] MEDS ORDERED: ALBU90AE2 IH (04:10)
[2023-04-07] MEDS ORDERED: PRED20TA3 PO (04:10)
[2023-04-07 04:20] VITALS: PULSE 104; RESP 18
[2023-04-07] MEDS ORDERED: GUAIFENESIN/DEXTROMETHORPHAN 1 EACH TAB.SR.12H PO ONE (04:30)
[2023-04-07 04:34] VITALS: BP 138/75; PULSE 95; RESP 20; O2SAT 96
== END 2023-04-07 05:02 | disposition home or self-care (01) ==
LOC: EDH 03:02
DX: J20.9 Acute bronchitis, unspecified (principal); E11.9 Type 2 diabetes mellitus without complications; E78.00 Pure hypercholesterolemia, unspecified; I10 Essential (primary) hypertension; Z79.01 Long term (current) use of anticoagulants; Z79.1 Long term (current) use of non-steroidal anti-inflammatories (NSAID); Z79.82 Long term (current) use of aspirin; Z79.899 Other long term (current) drug therapy; Z88.5 Allergy status to narcotic agent; Z88.8 Allergy status to other drugs, medicaments and biological substances; Z91.041 Radiographic dye allergy status; Z20.822 Contact with and (suspected) exposure to COVID-19
CPT/HCPCS: 99284; 96374; 71045; 87635; 87880; 87804 ×2; 94640; C9803; J2930

== ENCOUNTER 2023-04-16 01:41 | Emergency (ER) | payer OTHER, MEDICARE ==
[~2023-04-16] VITALS: Ht 160 cm; Wt 60.3 kg
[~2023-04-16 01:41] MED LIST changes: +ALBU90AE2 IH; +AZIT500T2 PO; +GUAI1TBM19 PO; +PRED20TA3 PO
[2023-04-16 02:04] LABS: BASOPHILS # (AUTO) 0.05 K/uL (0.00-0.20); BASOPHILS % (AUTO) 0.5 % (0.0-5.0); HEMATOCRIT 31.8 % (36-48); IMMATURE GRANULOCYTE ABSOLUTE 0.04 K/uL (0-1); LYMPHOCYTES # (AUTO) 3.1 K/uL (1.0-4.8); LYMPHOCYTES % (AUTO) 30.2 % (21.0-51.0); MEAN CORPUSCULAR HEMOGLOBIN 31.7 pg (27.0-33.0); MEAN CORPUSCULAR HGB CONC 32.7 g/dL (32.0-36.0); MONOCYTES # (AUTO) 1.2 K/uL (0.1-1.0); MONOCYTES % (AUTO) 11.7 % (3.0-13.0); NEUTROPHILS # (AUTO) 5.8 K/uL (1.8-7.7); NEUTROPHILS % (AUTO) 56.2 % (40.0-77.0); PLATELET COUNT (AUTO) 248 K/uL (130-400); RED BLOOD CELL COUNT(AUTO) 3.28 MIL/uL (4.00-5.50); RED CELL DISTRIBUTION WIDTH 13.2 % (11.0-15.5); WHITE BLOOD COUNT (AUTO) 10.3 K/uL (4.8-10.8)
[2023-04-16 02:17] LABS: BILIRUBIN,URINE MODERATE mg/dL (NEGATIVE); COLOR,URINE YELLOW (YELLOW); GLUCOSE, URINE (UA) NEGATIVE (NEGATIVE); KETONES,URINE 15 mg/dL (NEGATIVE); LEUKOCYTE ESTERASE ,URINE MODERATE Leu/uL (NEGATIVE); NITRATE,URINE NEGATIVE (NEGATIVE); OCCULT BLOOD,URINE TRACE-INTACT (NEGATIVE); PROTEIN,URINE TRACE mg/dL (NEGATIVE)
[2023-04-16 02:17] LABS: SARS-CoV-2, RNA, NAAT NEGATIVE SARS CoV-2 (NEGATIVE)
[2023-04-16 02:21] LABS: CREATININE 0.9 mg/dL (0.5-1.5); INFLUENZA TYPE A Negative For Type A (NEGATIVE); INFLUENZA TYPE B Negative For Type B (NEGATIVE); POTASSIUM 4.2 mmol/L (3.5-5.1)
[2023-04-16 02:21] LABS: ADD UA MICROSCOPIC YES; APPEARANCE,URINE SLIGHTLY CLOUDY (CLEAR)
[2023-04-16 02:22] LABS: BACTERIA,URINE Rare /HPF (None Seen); MUCUS,URINE Rare LPF (None Seen); RBC,URINE 0-1 /HPF (0-1); SQUAMOUS EPITHELIAL CELL,UR Rare /HPF (0-2)
[2023-04-16 02:28] LABS: ALBUMIN 2.2 g/dL (3.5-5.0); BILIRUBIN,TOTAL 1.2 mg/dL (0.2-1.0); MAGNESIUM 1.7 mg/dL (1.80-2.40); TOTAL PROTEIN, SERUM 7.8 g/dL (6.0-8.3)
[2023-04-16 02:33] LABS: B-TYPE NATRIURETIC PEPTIDE 74 pg/mL (0-100)
[2023-04-16] MEDS ORDERED: KETOROLAC 15MG/ML VIAL (15MG/ML) IV ONE (04:00)
[2023-04-16] MEDS ORDERED: CEPH500T PO (05:40)
[2023-04-16] MEDS ORDERED: IBUP-2070 PO (05:40)
[2023-04-16 06:36] VITALS: BP 125/68; PULSE 80; RESP 18; O2SAT 98
== END 2023-04-16 06:54 | disposition home or self-care (01) ==
LOC: EDH 01:41
DX: S93.401A Sprain of unspecified ligament of right ankle, initial encounter (principal); N39.0 Urinary tract infection, site not specified; E11.9 Type 2 diabetes mellitus without complications; E78.00 Pure hypercholesterolemia, unspecified; I10 Essential (primary) hypertension; Z90.49 Acquired absence of other specified parts of digestive tract; Z90.710 Acquired absence of both cervix and uterus; Z20.822 Contact with and (suspected) exposure to COVID-19; X58.XXXA Exposure to other specified factors, initial encounter; Y93.89 Activity, other specified; Y92.89 Other specified places as the place of occurrence of the external cause; Y99.8 Other external cause status
CPT/HCPCS: 99285; 96374; 29515; 71045; 87635; 82550; 83735; 84484; 80053; 83880; 85025; 87088; 87804 ×2; 83605; 81001; 36415; 73610; 93005; C9803; J1885

== ENCOUNTER 2023-04-20 16:30 | Emergency (ER) | payer OTHER, MEDICARE ==
[~2023-04-20] VITALS: Ht 160 cm; Wt 60.3 kg
[~2023-04-20 16:30] MED LIST changes: +CEPH500T PO
[2023-04-20 16:34] VITALS: BP 122/82; PULSE 84; RESP 18
== END 2023-04-20 21:04 | disposition left against medical advice (07) ==
LOC: EDH 16:30
DX: M79.606 Pain in leg, unspecified (principal); Z53.21 Procedure and treatment not carried out due to patient leaving prior to being seen by health care provider
CPT/HCPCS: 99281

== ENCOUNTER 2023-04-30 17:04 | Emergency (ER) | payer OTHER, MEDICARE ==
[~2023-04-30] VITALS: Ht 160 cm; Wt 60.3 kg
[2023-04-30 17:13] VITALS: BP 128/74; PULSE 96; RESP 18; O2SAT 97
[2023-04-30] MEDS ORDERED: ACETAMINOPHEN 500 MG TABLET PO ONE (17:30)
== END 2023-04-30 18:32 | disposition home or self-care (01) ==
LOC: EDH 17:04
DX: S70.01XA Contusion of right hip, initial encounter (principal); S70.11XA Contusion of right thigh, initial encounter; I10 Essential (primary) hypertension; M19.90 Unspecified osteoarthritis, unspecified site; Z90.89 Acquired absence of other organs; Z88.5 Allergy status to narcotic agent; Z88.8 Allergy status to other drugs, medicaments and biological substances; W01.0XXA Fall on same level from slipping, tripping and stumbling without subsequent striking against object, initial encounter; Y93.89 Activity, other specified; Y92.89 Other specified places as the place of occurrence of the external cause; Y99.8 Other external cause status
CPT/HCPCS: 72170; 73502

== ENCOUNTER 2023-05-16 00:49 | Emergency (ER) | payer OTHER, MEDICARE ==
[~2023-05-16] VITALS: Ht 160 cm; Wt 63.5 kg
[2023-05-16] MEDS ORDERED: LIDOCAINE 5% TOPICAL PATCH TP ONE (05:00)
[2023-05-16] MEDS ORDERED: IBUPROFEN 600 MG TABLET PO ONE (05:00)
[2023-05-16 05:39] VITALS: BP 135/75; PULSE 79; RESP 16; O2SAT 97
== END 2023-05-16 05:50 | disposition home or self-care (01) ==
LOC: EDH 00:49
DX: S70.01XA Contusion of right hip, initial encounter (principal); S70.11XA Contusion of right thigh, initial encounter; W18.39XA Other fall on same level, initial encounter; Y93.89 Activity, other specified; Y92.89 Other specified places as the place of occurrence of the external cause; Y99.8 Other external cause status; I10 Essential (primary) hypertension; E11.9 Type 2 diabetes mellitus without complications; E78.00 Pure hypercholesterolemia, unspecified; Z79.82 Long term (current) use of aspirin; Z79.899 Other long term (current) drug therapy; Z98.890 Other specified postprocedural states; Z88.2 Allergy status to sulfonamides; Z88.5 Allergy status to narcotic agent; Z88.8 Allergy status to other drugs, medicaments and biological substances
CPT/HCPCS: 73030; 73502; 73552; 73590; 73600; 73630

== ENCOUNTER 2023-06-14 17:43 | Emergency (ER) | payer OTHER, MEDICARE ==
[~2023-06-14] VITALS: Ht 157.5 cm; Wt 64.0 kg
[2023-06-14 20:34] LABS: BASOPHILS # (AUTO) 0.04 K/uL (0.00-0.20); BASOPHILS % (AUTO) 0.6 % (0.0-5.0); EOSINOPHILS # (AUTO) 0.12 K/uL (0.00-0.70); EOSINOPHILS % (AUTO) 1.7 % (0.0-8.0); IMMATURE GRANULOCYTE ABSOLUTE 0.01 K/uL (0-1); LYMPHOCYTES % (AUTO) 42.6 % (21.0-51.0); MEAN CORPUSCULAR HEMOGLOBIN 27.4 pg (27.0-33.0); MEAN CORPUSCULAR HGB CONC 31.6 g/dL (32.0-36.0); MEAN CORPUSCULAR VOLUME 86.6 fL (79-99); MONOCYTES # (AUTO) 0.7 K/uL (0.1-1.0); MONOCYTES % (AUTO) 10.6 % (3.0-13.0); NEUTROPHILS # (AUTO) 3.1 K/uL (1.8-7.7); NEUTROPHILS % (AUTO) 44.4 % (40.0-77.0); PLATELET COUNT (AUTO) 250 K/uL (130-400); RED BLOOD CELL COUNT(AUTO) 3.58 MIL/uL (4.00-5.50); RED CELL DISTRIBUTION WIDTH 16.2 % (11.0-15.5)
[2023-06-14 20:44] LABS: CREATININE 0.7 mg/dL (0.5-1.5); POTASSIUM 3.8 mmol/L (3.5-5.1)
[2023-06-14 20:49] LABS: ALBUMIN 2.8 g/dL (3.5-5.0); BILIRUBIN,TOTAL 0.5 mg/dL (0.2-1.0); TOTAL PROTEIN, SERUM 7.7 g/dL (6.0-8.3)
[2023-06-14 20:52] LABS: B-TYPE NATRIURETIC PEPTIDE 35 pg/mL (0-100)
[2023-06-14 21:05] LABS: APPEARANCE,URINE CLEAR (CLEAR); BILIRUBIN,URINE NEGATIVE (NEGATIVE); COLOR,URINE COLORLESS (YELLOW); GLUCOSE, URINE (UA) NEGATIVE (NEGATIVE); KETONES,URINE NEGATIVE (NEGATIVE); LEUKOCYTE ESTERASE ,URINE NEGATIVE Leu/uL (NEGATIVE); NITRATE,URINE NEGATIVE (NEGATIVE); OCCULT BLOOD,URINE NEGATIVE (NEGATIVE); PROTEIN,URINE NEGATIVE (NEGATIVE); UROBILINOGEN,URINE 0.2 mg/dL (0.2-1.0)
[2023-06-14 21:08] LABS: ADD UA MICROSCOPIC YES
[2023-06-14 21:09] LABS: BACTERIA,URINE RARE /HPF (None Seen); MUCUS,URINE RARE LPF (None Seen); SQUAMOUS EPITHELIAL CELL,UR RARE /HPF (0-2); WBC,URINE 0-1 /HPF (0-1)
[2023-06-14] MEDS: KETOROLAC 15MG/ML VIAL (15MG/ML) IM ONE (22:06)
[2023-06-14] MEDS: LACTATED RINGERS 1000ML 1,000 ML IV ONE (23:24)
[2023-06-15] MEDS: LACTATED RINGERS 1000ML 1,000 ML IV ONE (01:26)
[2023-06-15] MEDS: 0.9%NACL 1000ML 1,000 ML IV ONE (04:19)
[2023-06-15 06:14] VITALS: BP 123/79; PULSE 76; RESP 18; O2SAT 99
== END 2023-06-15 06:20 | disposition home or self-care (01) ==
LOC: EDH 17:43
DX: F10.129 Alcohol abuse with intoxication, unspecified (principal); G62.9 Polyneuropathy, unspecified; I10 Essential (primary) hypertension; Z79.01 Long term (current) use of anticoagulants; Z79.1 Long term (current) use of non-steroidal anti-inflammatories (NSAID); Z79.82 Long term (current) use of aspirin; Z79.899 Other long term (current) drug therapy; Z88.5 Allergy status to narcotic agent; Z88.8 Allergy status to other drugs, medicaments and biological substances; Z90.49 Acquired absence of other specified parts of digestive tract; Z91.041 Radiographic dye allergy status
CPT/HCPCS: 99284; 96360; 96361 ×2; 80053; 83880; 85025; 83605 ×2; 81001; 36415 ×2; 73630; 96372; J1885; J7120; J7030

== ENCOUNTER 2023-06-23 07:23 | Emergency (ER) | payer OTHER, MEDICARE ==
[~2023-06-23] VITALS: Ht 157.5 cm; Wt 64.0 kg
[2023-06-23 08:44] LABS: BASOPHILS # (AUTO) 0.04 K/uL (0.00-0.20); BASOPHILS % (AUTO) 0.5 % (0.0-5.0); EOSINOPHILS # (AUTO) 0.05 K/uL (0.00-0.70); EOSINOPHILS % (AUTO) 0.6 % (0.0-8.0); HEMATOCRIT 30.6 % (36-48); IMMATURE GRANULOCYTE ABSOLUTE 0.02 K/uL (0-1); LYMPHOCYTES # (AUTO) 2.5 K/uL (1.0-4.8); LYMPHOCYTES % (AUTO) 31.7 % (21.0-51.0); MEAN CORPUSCULAR HEMOGLOBIN 27.3 pg (27.0-33.0); MEAN CORPUSCULAR HGB CONC 32.7 g/dL (32.0-36.0); MEAN CORPUSCULAR VOLUME 83.6 fL (79-99); MONOCYTES # (AUTO) 0.7 K/uL (0.1-1.0); MONOCYTES % (AUTO) 8.6 % (3.0-13.0); NEUTROPHILS # (AUTO) 4.5 K/uL (1.8-7.7); NEUTROPHILS % (AUTO) 58.3 % (40.0-77.0); PLATELET COUNT (AUTO) 259 K/uL (130-400); RED BLOOD CELL COUNT(AUTO) 3.66 MIL/uL (4.00-5.50); RED CELL DISTRIBUTION WIDTH 16.5 % (11.0-15.5); WHITE BLOOD COUNT (AUTO) 7.8 K/uL (4.8-10.8)
[2023-06-23 08:54] LABS: CREATININE 0.7 mg/dL (0.5-1.5); POTASSIUM 3.8 mmol/L (3.5-5.1)
[2023-06-23] MEDS: CYCLOBENZAPRINE HCL 10 MG TABLET PO ONE (09:11)
[2023-06-23] MEDS: ACETAMINOPHEN 500 MG TABLET PO ONE (09:12)
[2023-06-23 09:13] LABS: APPEARANCE,URINE CLEAR (CLEAR); BILIRUBIN,URINE NEGATIVE (NEGATIVE); COLOR,URINE YELLOW (YELLOW); GLUCOSE, URINE (UA) NEGATIVE (NEGATIVE); KETONES,URINE NEGATIVE (NEGATIVE); LEUKOCYTE ESTERASE ,URINE NEGATIVE Leu/uL (NEGATIVE); NITRATE,URINE NEGATIVE (NEGATIVE); OCCULT BLOOD,URINE NEGATIVE (NEGATIVE); PH,URINE 6.5 (5.0-8.0); PROTEIN,URINE NEGATIVE (NEGATIVE); UROBILINOGEN,URINE 3 mg/dL (0.2-1.0)
[2023-06-23 09:19] LABS: ADD UA MICROSCOPIC YES
[2023-06-23 09:21] LABS: BACTERIA,URINE RARE /HPF (None Seen); RBC,URINE 0-1 /HPF (0-1)
[2023-06-23 10:34] VITALS: BP 132/78; PULSE 78; RESP 18; O2SAT 98
== END 2023-06-23 10:35 | disposition home or self-care (01) ==
LOC: EDH 07:23
DX: S43.402A Unspecified sprain of left shoulder joint, initial encounter (principal); S73.101A Unspecified sprain of right hip, initial encounter; E11.42 Type 2 diabetes mellitus with diabetic polyneuropathy; E78.00 Pure hypercholesterolemia, unspecified; I10 Essential (primary) hypertension; Z79.01 Long term (current) use of anticoagulants; Z79.1 Long term (current) use of non-steroidal anti-inflammatories (NSAID); Z79.82 Long term (current) use of aspirin; Z79.899 Other long term (current) drug therapy; Z88.5 Allergy status to narcotic agent; Z88.8 Allergy status to other drugs, medicaments and biological substances; Z90.49 Acquired absence of other specified parts of digestive tract; Z91.041 Radiographic dye allergy status; X50.1XXA Overexertion from prolonged static or awkward postures, initial encounter; Y93.89 Activity, other specified; Y92.89 Other specified places as the place of occurrence of the external cause; Y99.8 Other external cause status
CPT/HCPCS: 36415; 71045; 73030; 73502; 73630; 80048; 81001; 82550; 84484; 85025; 87077; 87088; 87186; 93005

== ENCOUNTER 2023-06-29 02:52 | Emergency (ER) | payer OTHER, MEDICARE ==
[~2023-06-29] VITALS: Ht 154.9 cm; Wt 63.5 kg
[2023-06-29] MEDS ORDERED: IBUP-1493 PO (05:03)
[2023-06-29 05:26] VITALS: BP 117/61; PULSE 78; RESP 17; O2SAT 99
== END 2023-06-29 08:02 | disposition home or self-care (01) ==
LOC: EDH 02:52
DX: S96.911A Strain of unspecified muscle and tendon at ankle and foot level, right foot, initial encounter (principal); S09.90XA Unspecified injury of head, initial encounter; F10.20 Alcohol dependence, uncomplicated; M54.50 Low back pain, unspecified; Z79.01 Long term (current) use of anticoagulants; Z79.1 Long term (current) use of non-steroidal anti-inflammatories (NSAID); Z79.82 Long term (current) use of aspirin; Z79.899 Other long term (current) drug therapy; Z88.5 Allergy status to narcotic agent; Z88.8 Allergy status to other drugs, medicaments and biological substances; Z91.041 Radiographic dye allergy status; W18.39XA Other fall on same level, initial encounter; Y93.89 Activity, other specified; Y92.89 Other specified places as the place of occurrence of the external cause; Y99.8 Other external cause status
CPT/HCPCS: 70450; 72125; 72131; 73590; 73600

== ENCOUNTER 2023-07-27 16:36 | Emergency (ER) | payer OTHER, MEDICARE ==
[~2023-07-27] VITALS: Ht 157.5 cm; Wt 59.0 kg
[~2023-07-27 16:36] MED LIST changes: -ALBU90AE2 IH; -AZIT500T2 PO; -CEPH500B PO; -CEPH500T PO; -GABA300C PO; -GUAI1TBM19 PO; +IBUP-1493 PO; -IBUP-2070 PO; -MAGN240P PO; -MELO-106 PO; -POTA-200 PO; -PRED20TA3 PO
[2023-07-27 17:09] LABS: BASOPHILS # (AUTO) 0.06 K/uL (0.00-0.20); BASOPHILS % (AUTO) 0.8 % (0.0-5.0); EOSINOPHILS # (AUTO) 0.34 K/uL (0.00-0.70); EOSINOPHILS % (AUTO) 4.3 % (0.0-8.0); HEMATOCRIT 29.6 % (36-48); IMMATURE GRANULOCYTE ABSOLUTE 0.02 K/uL (0-1); LYMPHOCYTES % (AUTO) 49.9 % (21.0-51.0); MEAN CORPUSCULAR HEMOGLOBIN 26.5 pg (27.0-33.0); MEAN CORPUSCULAR HGB CONC 32.8 g/dL (32.0-36.0); MEAN CORPUSCULAR VOLUME 80.9 fL (79-99); MONOCYTES # (AUTO) 0.8 K/uL (0.1-1.0); MONOCYTES % (AUTO) 10.5 % (3.0-13.0); NEUTROPHILS # (AUTO) 2.8 K/uL (1.8-7.7); NEUTROPHILS % (AUTO) 34.2 % (40.0-77.0); PLATELET COUNT (AUTO) 217 K/uL (130-400); RED BLOOD CELL COUNT(AUTO) 3.66 MIL/uL (4.00-5.50); RED CELL DISTRIBUTION WIDTH 19.6 % (11.0-15.5)
[2023-07-27 17:14] VITALS: BP 94/53; PULSE 77; RESP 16; O2SAT 99
[2023-07-27 17:25] LABS: CREATININE 0.7 mg/dL (0.5-1.0); POTASSIUM 3.2 mmol/L (3.5-5.1)
[2023-07-27 17:30] LABS: ALBUMIN 3.1 g/dL (3.5-5.0); BILIRUBIN,TOTAL 0.6 mg/dL (0.2-1.0)
[2023-07-27 18:35] LABS: APPEARANCE,URINE CLEAR (CLEAR); BACTERIA,URINE RARE /HPF (None Seen); BILIRUBIN,URINE NEGATIVE (NEGATIVE); COLOR,URINE COLORLESS (YELLOW); GLUCOSE, URINE (UA) NEGATIVE (NEGATIVE); KETONES,URINE NEGATIVE (NEGATIVE); LEUKOCYTE ESTERASE ,URINE NEGATIVE Leu/uL (NEGATIVE); MUCUS,URINE RARE LPF (None Seen); NITRATE,URINE NEGATIVE (NEGATIVE); OCCULT BLOOD,URINE NEGATIVE (NEGATIVE); PROTEIN,URINE NEGATIVE (NEGATIVE); RBC,URINE 0-1 /HPF (0-1); SQUAMOUS EPITHELIAL CELL,UR RARE /HPF (0-2); UROBILINOGEN,URINE 0.2 mg/dL (0.2-1.0)
[2023-07-27] MEDS: POTASSIUM BICARB/CIT AC 25 MEQ TABLET.EFF PO ONE (18:54)
== END 2023-07-27 19:17 | disposition home or self-care (01) ==
LOC: EDH 16:36
DX: E87.6 Hypokalemia (principal); R53.82 Chronic fatigue, unspecified; Z79.01 Long term (current) use of anticoagulants; Z79.1 Long term (current) use of non-steroidal anti-inflammatories (NSAID); Z79.82 Long term (current) use of aspirin; Z79.899 Other long term (current) drug therapy; Z88.5 Allergy status to narcotic agent; Z88.8 Allergy status to other drugs, medicaments and biological substances; Z91.041 Radiographic dye allergy status
CPT/HCPCS: 36415; 80053; 81001; 82550; 85025

== ENCOUNTER 2023-11-07 21:19 | Emergency (ER) | payer OTHER, MEDICARE ==
[~2023-11-07] VITALS: Ht 157.5 cm; Wt 63.5 kg
[~2023-11-07 21:19] MED LIST changes: -AMLO-258 PO; +AMLO2.5T2 PO; -APIX2.5T PO; +ASPI-1005 PO; -ASPI-1197 PO; -ATOR40TA71 PO; +CARV25TA77 PO; +DICL20GE TP; +FAMO20TA8 PO; +FERS325 PO; +GABA300C PO; +HYDR-3421 PO; -IBUP-1493 PO; -LISI20TA24 PO; +OMEG1CAP31 PO; +OXYB5TAB20 PO; +PANT40TA55 PO; +POTA10CA95 PO; +ROSU10TA22 PO
[2023-11-07 21:56] LABS: BASOPHILS # (AUTO) 0.03 K/uL (0.00-0.20); BASOPHILS % (AUTO) 0.3 % (0.0-5.0); HEMATOCRIT 36.2 % (36-48); IMMATURE GRANULOCYTE ABSOLUTE 0.04 K/uL (0-1); LYMPHOCYTES # (AUTO) 2.2 K/uL (1.0-4.8); LYMPHOCYTES % (AUTO) 22.3 % (21.0-51.0); MEAN CORPUSCULAR HEMOGLOBIN 29.2 pg (27.0-33.0); MEAN CORPUSCULAR HGB CONC 33.7 g/dL (32.0-36.0); MEAN CORPUSCULAR VOLUME 86.6 fL (79-99); MONOCYTES # (AUTO) 0.7 K/uL (0.1-1.0); MONOCYTES % (AUTO) 6.6 % (3.0-13.0); NEUTROPHILS # (AUTO) 7.1 K/uL (1.8-7.7); NEUTROPHILS % (AUTO) 70.4 % (40.0-77.0); PLATELET COUNT (AUTO) 153 K/uL (130-400); RED BLOOD CELL COUNT(AUTO) 4.18 MIL/uL (4.00-5.50)
[2023-11-07 22:06] LABS: CARBON DIOXIDE 20 mmol/L (21-32); CHLORIDE 102 mmol/L (101-111); CREATININE 0.8 mg/dL (0.5-1.0); GLOMERULAR FILTR. RATE CALC 82 mL/min (>90); GLUCOSE,RANDOM 120 mg/dL (70-105); POTASSIUM 3.8 mmol/L (3.5-5.1); SODIUM SERUM 140 mmol/L (136-145); UREA NITROGEN, BLOOD 12 mg/dL (7-18)
[2023-11-07 22:08] LABS: INR 1.21 (0.85-1.15); PROTHROMBIN TIME 12.9 SEC (9.6-11.6)
[2023-11-07 22:13] LABS: B-TYPE NATRIURETIC PEPTIDE 24 pg/mL (0-100)
[2023-11-07] MEDS: LACTATED RINGERS 1000ML 1,000 ML IV ONE (22:13)
[2023-11-07 22:16] LABS: ALANINE AMINOTRANSFERASE 23 U/L (12-78); ALBUMIN 3.8 g/dL (3.5-5.0); ALCOHOL, BLOOD < 3 mg/dL (0-10); ASPARTATE AMINOTRANSFERASE 80 U/L (10-37); BILIRUBIN,TOTAL 2.3 mg/dL (0.2-1.0); CREATINE KINASE, TOTAL 135 U/L (21-232); TOTAL PROTEIN, SERUM 9.1 g/dL (6.0-8.3)
[2023-11-07 23:22] LABS: APPEARANCE,URINE CLOUDY (CLEAR); BILIRUBIN,URINE NEGATIVE (NEGATIVE); COLOR,URINE YELLOW (YELLOW); GLUCOSE, URINE (UA) NEGATIVE (NEGATIVE); KETONES,URINE 40 mg/dL (NEGATIVE); LEUKOCYTE ESTERASE ,URINE 250 Leu/uL (NEGATIVE); NITRATE,URINE NEGATIVE (NEGATIVE); OCCULT BLOOD,URINE NEGATIVE (NEGATIVE); PH,URINE 5.5 (5.0-8.0); PROTEIN,URINE 50 mg/dL (NEGATIVE)
[2023-11-07 23:30] LABS: AMPHET/METH SCREEN,URINE NEGATIVE (NEGATIVE); BARBITURATE SCREEN, URINE NEGATIVE (NEGATIVE); BENZODIAZEPINES SCREEN,URINE NEGATIVE (NEGATIVE); CANNABINOID SCREEN,URINE NEGATIVE (NEGATIVE); COCAINE SCREEN,URINE NEGATIVE (NEGATIVE); OPIATE SCREEN,URINE POSITIVE (NEGATIVE); PHENCYCLIDINE SCREEN,URINE NEGATIVE (NEGATIVE)
[2023-11-07 23:46] LABS: ADD UA MICROSCOPIC YES
[2023-11-07 23:48] LABS: BACTERIA,URINE FEW /HPF (None Seen); MUCUS,URINE FEW LPF (None Seen); SQUAMOUS EPITHELIAL CELL,UR FEW /HPF (0-2); WBC,URINE 26-50 /HPF (0-1)
[2023-11-08] MEDS ORDERED: CEPH500B PO (00:51)
[2023-11-08] MEDS: MAG/ALUM/SIMETH 30 ML UDCUP PO ONE (00:58)
[2023-11-08] MEDS: LIDOCAINE HCL 2% VISCOUS 15 ML UDCUP PO ONE (00:59)
[2023-11-08] MEDS: ONDANSETRON 4MG INJ IVP ONE (01:04)
[2023-11-08] MEDS: CEFTRIAXONE 1G VIAL IVPB ONE (01:05)
[2023-11-08 02:23] VITALS: BP 126/77; PULSE 98; RESP 20; O2SAT 96
== END 2023-11-08 02:26 | disposition home or self-care (01) ==
LOC: EDH 21:19
DX: N39.0 Urinary tract infection, site not specified (principal); Z79.82 Long term (current) use of aspirin; Z79.899 Other long term (current) drug therapy; Z88.5 Allergy status to narcotic agent; Z88.8 Allergy status to other drugs, medicaments and biological substances; Z91.041 Radiographic dye allergy status
CPT/HCPCS: 99284; 71045; 82550; 83735; 84484; 80053; 83880; 80305; 85025; 85610; 87086 ×2; 87186; 36415; 93005; 81001; 96365; 96361; 96375; J7120; J0696; J2405

== ENCOUNTER 2024-02-13 17:15 | Emergency (ER) | payer OTHER, MEDICARE ==
[~2024-02-13] VITALS: Ht 160 cm; Wt 72.6 kg
[~2024-02-13 17:15] MED LIST changes: +CEPH500B PO
[2024-02-13] MEDS: acetaMINOPHEN 500 MG TABLET PO ONE (18:26)
[2024-02-13] MEDS: pregABALin 25 MG CAP PO ONE (19:33)
[2024-02-13 21:15] VITALS: BP 125/63; PULSE 67; RESP 18; TEMP 98.2; O2SAT 99
== END 2024-02-13 21:16 | disposition home or self-care (01) ==
LOC: EDH 17:15
DX: S73.191A Other sprain of right hip, initial encounter (principal); S16.1XXA Strain of muscle, fascia and tendon at neck level, initial encounter; S70.11XA Contusion of right thigh, initial encounter; M25.512 Pain in left shoulder; M25.511 Pain in right shoulder; Z79.82 Long term (current) use of aspirin; Z79.899 Other long term (current) drug therapy; Z88.5 Allergy status to narcotic agent; Z88.8 Allergy status to other drugs, medicaments and biological substances; Z91.041 Radiographic dye allergy status; Z98.890 Other specified postprocedural states; W17.89XA Other fall from one level to another, initial encounter; Y93.89 Activity, other specified; Y92.89 Other specified places as the place of occurrence of the external cause; Y99.8 Other external cause status
CPT/HCPCS: 72040; 72125; 72170; 73030

== ENCOUNTER 2024-03-18 20:01 | Observation (INO) | payer OTHER, MEDICARE ==
[~2024-03-18] VITALS: Ht 157.5 cm; Wt 70.4 kg
[~2024-03-18 20:01] MED LIST changes: -AMLO2.5T2 PO; -ASPI-1005 PO; -CARV25TA77 PO; -CEPH500B PO; -DICL20GE TP; -FAMO20TA8 PO; -FERS325 PO; -GABA300C PO; -HYDR-3421 PO; +LEVO-70 PO; -METO-409 PO; -OMEG1CAP31 PO; -OXYB5TAB20 PO; -PANT40TA55 PO; -POTA10CA95 PO; -ROSU10TA22 PO; +SULF1TAB42 PO
--- NOTE | 2024-03-18 20:24 | HMCIMG ---
CHEST 1VW HISTORY: Chest pain COMPARISON: 03/13/2024 FINDINGS: A frontal projection of the chest was obtained. No acute pulmonary infiltrates is seen. The heart is borderline enlarged. Prominent interstitial markings are seen. Postop changes are seen of the cervical spine. Aortic calcifications are seen. IMPRESSION: 1. No acute pulmonary infiltrate is seen. Prominent interstitial markings are seen.
--- NOTE | 2024-03-18 20:26 | ERN ---
ED Note History of Present Illness Stated Complaint: MID STERNAL CHEST PAIN ONSET 1700 Chief Complaint: Chest Pain Time Seen by MD: 20:10 Dictation: Patient is 64 years old female who presented with midsternal chest pain that started around 5:00 p.m.. She was recently hospitalized in February and also 03 13 for a UTI. She lives by herself and stated that the pain really concerned her which was more off and on and was radiating to the left side. No obvious diaphoresis syncopal episode. She does give a history of palpitations. She denied any cough sputum or hemoptysis. She does give a history of heartburn and indigestion in the past. Temperature 97.6 pulse 96 respirations 16 pulse oximetry 93% on room air blood pressure past medical history of Coronary Artery Disease, hyperlipidemia, hypertension, falls, UTI, cholecystitis, chronic alcohol abuse, chronic fatigue, shingles, drug-seeking behavior. Allergies: Coded Allergies: codeine (Unverified Allergy, Intermediate, ITCHING , 02/22/22) PER PATIENT STATEMENT ITCHING iodine (Unverified Allergy, Unknown, 06/08/21) propoxyphene (Unverified Allergy, Unknown, 06/08/21) Home Meds Reported Medications Oxybutynin Chloride (Oxybutynin Chloride) 5 Mg Tablet, 5 MG PO BID, TAB 03/19/24 Pregabalin (Pregabalin) 100 Mg Capsule, 1 CAP PO TID 03/19/24 Discontinued Scripts Sulfamethoxazole/Trimethoprim (Bactrim Ds Tablet) 800 Mg-160 Mg Tablet, 1 TAB PO BID for 7 Days, #14 TAB 0 Refills Prov:DANIELA ROWLAND MD 03/13/24 Past Medical History Past Medical History: Anxiety, CAD, High Cholesterol, Hypertension, Other Additional Past Medical Hx: NEUROPATHY. Surgical History: Appendectomy Surgical History Other: R KNEE Family History: HTN Social History: ETOH, Lives with family History: Not Applicable RN Note Reviewed/Agreed w/PFSH: Yes Review of System Dictation Constitutional: Negative for fever,chills, and weight loss Eyes: Negative for injury, pain,redness, and discharge ENT: Negative for injury,pain or swelling Cardiovascular: Positive for chest pain, palpitations, and denies edema Respiratory: Negative for shortness of breath, cough, and wheezing, Abdomen/GI: Negative for abdominal pain, nausea, vomiting, diarrhea, and constipation Back: Negative for injury and pain : Negative for injury, bleeding and discharge MS/Extremity: Negative for injury and deformity Skin: Negative for rash, and discoloration Neuro: Negative for headache, weakness, numbness, tingling, and seizure Psych: Negative for suicide ideation, homicidal ideation, and hallucinations Initial Vital Sign VS Vital Signs Date Time Temp Pulse Resp B/P (MAP) Pulse Ox O2 Delivery O2 Flow Rate FiO2 03/18/24 20:03 97.5 96 16 135/91 93 Room Air* 0 21 Physical Exam Dictation General: awake, alert, NAD Head/Face: Normocephalic, atraumatic Eyes: PERRL, EOMI, vision at baseline ENT: oral cavity clear, TMs clear, no signs of infection Neck: Trachea midline, supple, no nuchal rigidity Cardiovascular: RRR, normal S1/S2, No MRGs, no JVD Respiratory: CTAB, no respiratory distress, No rales or wheezes Abdomen: Soft, non-tender, non-distended, normal bowel sounds, no guarding or rebound. Skin: Warm, dry, normal turgor, no rash MS/Extremity: Pulses equal, no cyanosis, neurovascular intact, FROM Neuro: COAx4, GCS 15, strength 5/5, CN 2-12 intact, normal cerebellar exam, normal gait, Psych: Normal behavior, mood, and affect normal Extremities-trace edema without any palpable cords, Homans sign is negative Results (Laboratory/Radiology) Laboratory/Radiology Laboratory Tests Test 03/18/24 20:30 03/18/24 21:42 03/19/24 05:14 03/19/24 17:59 White Blood Count 9.0 K/uL (4.8-10.8) 6.3 K/uL (4.8-10.8) # Red Blood Count 3.83 MIL/uL (4.00-5.50) L 3.69 MIL/uL (4.00-5.50) L Hemoglobin 13.0 g/dL (12.0-16.0) 12.4 g/dL (12.0-16.0) Hematocrit 38.5 % (36-48) 37.3 % (36-48) Mean Corpuscular Volume 100.5 fL (79-99) H 101.1 fL (79-99) H Mean Corpuscular Hemoglobin 33.9 pg (27.0-33.0) H 33.6 pg (27.0-33.0) H Mean Corpuscular Hemoglobin Concent 33.8 g/dL (32.0-36.0) 33.2 g/dL (32.0-36.0) Red Cell Distribution Width 14.4 % (11.0-15.5) 14.4 % (11.0-15.5) Platelet Count 200 K/uL (130-400) 168 K/uL (130-400) Mean Platelet Volume 9.8 fL (7.5-10.5) 10.0 fL (7.5-10.5) Immature Granulocyte % (Auto) 0.1 % (0-1) 0.3 % (0-1) Neutrophils (%) (Auto) 49.8 % (40.0-77.0) 47.0 % (40.0-77.0) Lymphocytes (%) (Auto) 35.3 % (21.0-51.0) 35.8 % (21.0-51.0) Monocytes (%) (Auto) 13.3 % (3.0-13.0) H 13.9 % (3.0-13.0) H Eosinophils (%) (Auto) 1.2 % (0.0-8.0) 2.7 % (0.0-8.0) Basophils (%) (Auto) 0.3 % (0.0-5.0) 0.3 % (0.0-5.0) Neutrophils # (Auto) 4.5 K/uL (1.8-7.7) 3.0 K/uL (1.8-7.7) Lymphocytes # (Auto) 3.2 K/uL (1.0-4.8) 2.3 K/uL (1.0-4.8) Monocytes # (Auto) 1.2 K/uL (0.1-1.0) H 0.9 K/uL (0.1-1.0) Eosinophils # (Auto) 0.11 K/uL (0.00-0.70) 0.17 K/uL (0.00-0.70) Basophils # (Auto) 0.03 K/uL (0.00-0.20) 0.02 K/uL (0.00-0.20) Absolute Immature Granulocyte (auto 0.01 K/uL (0-1) 0.02 K/uL (0-1) Nucleated Red Blood Cells 0.0 % (0.0-0.19) 0.0 % (0.0-0.19) Prothrombin Time 11.9 SEC (9.6-11.6) H Prothromb Time International Ratio 1.11 (0.85-1.15) Activated Partial Thromboplast Time 30.1 SEC (26.3-35.5) Sodium Level 134 mmol/L (136-145) L 144 mmol/L (136-145) Potassium Level 3.9 mmol/L (3.5-5.1) 4.5 mmol/L (3.5-5.1) Chloride Level 98 mmol/L (101-111) L 107 mmol/L (101-111) Carbon Dioxide Level 27 mmol/L (21-32) 31 mmol/L (21-32) Blood Urea Nitrogen 7 mg/dL (7-18) 7 mg/dL (7-18) Creatinine 0.8 mg/dL (0.5-1.0) 0.8 mg/dL (0.5-1.0) Glomerular Filtration Rate Calc 81 mL/min (>90) 81 mL/min (>90) Random Glucose 103 mg/dL (70-105) 93 mg/dL (70-105) Total Calcium 9.2 mg/dL (8.5-10.1) 8.9 mg/dL (8.5-10.1) Troponin I High Sensitivity 6 ng/L (4-50) 6 ng/L (4-50) B-Type Natriuretic Peptide 55 pg/mL (0-100) Urine Color YELLOW (YELLOW) Urine Appearance CLEAR (CLEAR) Urine pH 6.5 (5.0-8.0) Urine Specific [place] 1.020 (1.001-1.031) Urine Protein 20 mg/dL (NEGATIVE) H Urine Glucose (UA) NEGATIVE mg/dL (NEGATIVE) Urine Ketones NEGATIVE mg/dL (NEGATIVE) Urine Occult Blood NEGATIVE (NEGATIVE) Urine Nitrate NEGATIVE (NEGATIVE) Urine Bilirubin NEGATIVE mg/dL (NEGATIVE) Urine Urobilinogen 4.0 mg/dL (0.2-1.0) H Urine Leukocyte Esterase 75 Luis/uL (NEGATIVE) H Urine RBC 2-5 /HPF (0-1) H Urine WBC 2-5 /HPF (0-1) H Urine Squamous Epithelial Cells FEW /HPF (0-2) Urine Bacteria MOD /HPF (None Seen) Urine Hyaline Casts 2-5 /LPF (0-1 /LPF) H Phosphorus Level 4.2 mg/dL (2.5-4.9) Magnesium Level 1.70 mg/dL (1.80-2.40) L Test 03/19/24 22:01 Whole Blood Glucose 97 MG/DL (70-110) Bedside Glucose Comment Notified Nurse Labs Reviewed?: Yes X-RAY Comment: Lexiscan done on 08/26/2023 showed a small fixed perfusion defect in the basal and inferior wall. Ultrasound Comment: Echocardiogram done in August of 2023 showed a normal ejection fraction of 70% ED Course ED Course Orders Procedure Category Date Status Time Cbc With Differential LAB 03/18/24 Complete 20:07 Basic Metabolic Panel LAB 03/18/24 Complete 20:07 B-Type Natriuretic LAB 03/18/24 Complete Peptide 20:07 Pt And Ptt LAB 03/18/24 Complete 20:07 Troponin I High LAB 03/18/24 Complete Sensitivity 20:07 Chest 1vw RAD 03/18/24 Resulted 20:07 12 Lead Ekg Tracing- EKG 03/18/24 Complete Technical 20:07 Urinalysis Profile LAB 03/18/24 Complete 21:36 Edm Admit Bridge Order ADM 03/18/24 Transmitted 21:49 Vital Signs Every 4 CPOE 03/18/24 Transmitted Hours 22:02 Daily Weights CPOE 03/18/24 Transmitted 22:02 I&O Q Shift CPOE 03/18/24 Transmitted 22:02 Activity: Ambulate W/ CPOE 03/18/24 Transmitted Assist 22:02 Heart Healthy Diet DIET 03/19/24 Transmitted Breakfast Albuterol 0.083% PHA 03/18/24 In Process 2.5mg/3ml (Proventil 22:30 Cbc With Differential LAB 03/19/24 Complete 04:00 Basic Metabolic Panel LAB 03/19/24 Complete 04:00 Magnesium LAB 03/19/24 Complete 04:00 Phosphorus LAB 03/19/24 Complete 04:00 0.9%Nacl 1000ml (Ns PHA 03/18/24 In Process 1000ml) 22:30 Folic Acid 1 Mg PHA 03/19/24 In Process Tablet (Folic Acid 1 09:00 Thiamine Hcl (Vitamin PHA 03/19/24 In Process B-1) 09:00 Ascorbic Acid 500mg PHA 03/19/24 In Process Tab (Vitamin C 500mg 09:00 Polyethylene Glycol PHA 03/19/24 In Process 3350 (Miralax 3350 1 09:00 Ferrous Sulfate PHA 03/19/24 In Process (Ferrous Sulfate) 09:00 Pantoprazole 40mg Tab PHA 03/19/24 In Process (Protonix 40mg Tab 09:00 Enoxaparin Sodium 40 PHA 03/19/24 In Process Mg/0.4 Ml (Lovenox) 09:00 Acetaminophen 325 Tab PHA 03/18/24 In Process (Tylenol 325mg Tab 22:30 Acetaminophen 650mg PHA 03/18/24 In Process Supp (Tylenol 650mg 22:30 Apply Scds CPOE 03/18/24 Transmitted 22:02 Elevate Hob At 30 CPOE 03/18/24 Transmitted Degrees 22:02 Admit Orders ADM 03/18/24 Transmitted 22:02 Telemetry Monitoring CPOE 03/18/24 Transmitted 22:02 Initiate JESSE 03/18/24 Complete Hyperglycemia Protoco 22:02 Insulin Regular, PHA 03/19/24 In Process Human 3ml (Humulin R 07:30 Culture Urine NESSA 03/18/24 Complete 22:18 Ceftriaxone 2gm Vial PHA 03/19/24 In Process (Rocephin 2gm Inj) 08:30 Magnesium 2gm Premix PHA 03/19/24 In Process 50ml (Magnesium 2gm 16:00 12 Lead Ekg Tracing- EKG 03/19/24 Logged Technical 17:42 Troponin I High LAB 03/19/24 Complete Sensitivity 17:42 Vital Signs Date Time Temp Pulse Resp B/P (MAP) Pulse Ox O2 Delivery O2 Flow Rate FiO2 03/20/24 00:00 97.7 67 20 156/90 97 Room Air 03/19/24 19:00 98.2 81 20 160/86 97 Room Air 03/19/24 18:55 97 Room Air* 0 21 03/19/24 14:00 101 20 153/99 99 Room Air 03/19/24 12:00 98.1 98 18 173/99 99 Room Air 03/19/24 11:55 98.6 03/19/24 10:00 97 20 170/87 96 Room Air 03/19/24 08:00 97.2 104 20 157/74 96 Room Air 03/19/24 06:59 64 18 N/A Room Air 03/19/24 04:37 62 18 157/88 96 Room Air* 0 21 03/18/24 23:53 98.6 81 18 143/85 96 Room Air* 0 21 03/18/24 23:26 79 17 N/A Room Air 03/18/24 22:08 78 18 161/92 96 Room Air* 0 21 03/18/24 20:03 97.5 96 16 135/91 93 Room Air 0 03/18/24 20:03 97.5 96 16 135/91 93 Room Air* 0 21 We will perform diagnostic labs, advanced imaging and administer medications according to the patient's complaint. Once the results are available, will review and personally interpreted the labs to rule out any acute life- threatening emergency the trach require immediate intervention and treatment. I will then re-evaluate the patient after treatment and diagnostic exams have return to determine whether the patient requires any further testing, can safely be discharged home or need further admission to hospital for additional treatment and evaluation. Labs reviewed CBC with a normal limits BNP 7 significant for hyponatremia sodium 134. Chest x-ray is a poor inspiratory effort and vascular markings appeared prominent. I also reviewed her old echo done in August of 2023 which showed a normal ejection fraction a normal study. Troponins are negative. Considering the postmenopausal age with multiple risk factors MACE score is moderate Recommended admission to the hospital for evaluation and management of the chest pain and risk stratification. Patient is agreeable HEART Score Response (Comments) Value History: Moderate suspicion (+1) 1 EKG: Repolarization changes 1 Age: > 65yrs (+2) 2 Risk Factors: 3+ risk factors (+2) 2 Initial Troponin: Normal limit (0) 0 HEART Score Risk: Mod Risk for MACE (4-6) Total 6 Medical Decision Making MDM MDM: Differential diagnosis: Acute coronary syndrome, esophagitis, gastritis Rationale: Tests considered and ordered secondary to shared decision making include: labs, ECG and radiology Previous outside records reviewed: Old ER visits. Risk of complication and/or morbidity or mortality of patient management: None Medications-Per medication reconciliation Need for hospitalization: Patient does meet criteria for hospitalization. Need for emergency major/minor surgery: No There are no social concerns with this patient. Prescription drug management Prescriptions will include symptomatic care Patient's prior external medical records from other ER visits were reviewed by me as indicated. Prior testing and results from previous visits were reviewed. Prior tests were taken into account with medical decision making and resource utilization, independent historian/historians were used to obtain complete medical history. I independently interpreted the test that were performed, results were reviewed by me and considered findings on radiology if ordered. Medical management and examination interpretation discussions were had by me with other qualified healthcare professionals as indicated for the patient's care. Problem List Problem List: (1) Hypertension (2) Hypercholesterolemia (3) Coronary artery disease (4) Chest pain (5) Chronic alcohol abuse DX & DISP Disposition: Inpatient Decision to Admit Time: 21:38 Departure Impression: Primary Impression: Angina at rest Additional Impressions: Coronary artery disease, Hypercholesterolemia, Hypertension, Chronic alcohol abuse Condition: Stable Additional Instructions: Patient was informed of all the diagnostic labs and procedures conducted in the emergency room today and demonstrated understanding of the results. I personally reviewed and interpreted all the diagnostic exams performed in the ER today. The patient will be admitted to the hospital for further treatment and evaluation. Disposition-admit to facility Condition-stable/guarded Course-uncertain at this time Pain status-decreased Assessment-exam unchanged Admission Certification- I certify that the patients status is appropriate and is based on my best clinical judgment and the patient's condition as documented in the medical records Referrals: REFUGIO PASCUAL MD (PCP) SOCO PEDROZA MD Mar 18, 2024 20:26
[2024-03-18 20:37] LABS: BASOPHILS # (AUTO) 0.03 K/uL (0.00-0.20); BASOPHILS % (AUTO) 0.3 % (0.0-5.0); EOSINOPHILS # (AUTO) 0.11 K/uL (0.00-0.70); EOSINOPHILS % (AUTO) 1.2 % (0.0-8.0); HEMATOCRIT 38.5 % (36-48); IMMATURE GRANULOCYTE ABSOLUTE 0.01 K/uL (0-1); LYMPHOCYTES # (AUTO) 3.2 K/uL (1.0-4.8); LYMPHOCYTES % (AUTO) 35.3 % (21.0-51.0); MEAN CORPUSCULAR HEMOGLOBIN 33.9 pg (27.0-33.0); MEAN CORPUSCULAR HGB CONC 33.8 g/dL (32.0-36.0); MEAN CORPUSCULAR VOLUME 100.5 fL (79-99); MONOCYTES # (AUTO) 1.2 K/uL (0.1-1.0); MONOCYTES % (AUTO) 13.3 % (3.0-13.0); NEUTROPHILS # (AUTO) 4.5 K/uL (1.8-7.7); NEUTROPHILS % (AUTO) 49.8 % (40.0-77.0); PLATELET COUNT (AUTO) 200 K/uL (130-400); RED BLOOD CELL COUNT(AUTO) 3.83 MIL/uL (4.00-5.50); RED CELL DISTRIBUTION WIDTH 14.4 % (11.0-15.5)
[2024-03-18 20:47] LABS: CREATININE 0.8 mg/dL (0.5-1.0); POTASSIUM 3.9 mmol/L (3.5-5.1)
[2024-03-18 20:50] LABS: INR 1.11 (0.85-1.15); PROTHROMBIN TIME 11.9 SEC (9.6-11.6)
[2024-03-18 20:51] LABS: PARTIAL THROMBOPLASTIN TIME 30.1 SEC (26.3-35.5)
[2024-03-18 21:12] LABS: B-TYPE NATRIURETIC PEPTIDE 55 pg/mL (0-100)
--- NOTE | 2024-03-18 21:36 | NUR ---
PATIENT DID NOT BRING HOME MEDICATIONS
--- NOTE | 2024-03-18 22:06 | HP ---
[facility] HISTORY & PHYSICAL Date Patient Seen: Mar 18, 2024 Time of Visit: 22:03 Supervising Physician: Dr Henry Bennett Primary Care Physician: Dr. Goldstein Outpatient Specialists:Dr Peng Malloy Inpatient Consults: [ ] PROBLEM LIST: Atypical chest pain, unremarkable EKG and troponin level Anxiety, POA Hyponatremia, POA Hypertension, POA Hyperlipidemia, POA Chronic fatigue, POA Peripheral neuropathy, on Lyrica, POA History of alcohol abuse PLAN: Admit to medical-surgical floor with telemetry VS per unit protocol Multimodal pain relief Keep SBP less than 160 P.r.n. hydralazine labetalol Continue cardiac monitoring Trend troponin level Stat EKG and troponin level of with chest pain Monitor temperature curve Bilateral SCDs Treat fever aggressively Heart healthy diet CBC, CMP, magnesium level daily HPI: 64-year-old female with past medical history of hypertension, peripheral neuropathy, hyperlipidemia, who presented to ED via EMS with complaint of chest pain that started tonight while laying in bed. Patient was seen and examined in ED with no relatives present at bedside. According to her chest tightness started when she lay down, without any significant improvement. Apparently patient lives alone and decided to call EMS to bring her to ED for further medical evaluation. In ED stat EKG and troponin level was done with unremarkable results. Her CBC is unremarkable for any acute infection or anemia, her BNP is only significant for sodium of 134. Her chest x-ray did not reveal any acute infiltrates. At present patient is currently hemodynamically stable, denies any headache, shortness of breath, abdominal pain, fever, flu-like symptoms, or confusion. Patient denies any smoking, she drinks occasionally, denies illicit drug use Her flu shot is not up-to-date. PAST MEDICAL HX: see above PAST SURGICAL HX: noncontributory SOCIAL HISTORY: See HPI Coded Allergies: codeine (Unverified Allergy, Intermediate, ITCHING , 02/22/22) PER PATIENT STATEMENT ITCHING iodine (Unverified Allergy, Unknown, 06/08/21) propoxyphene (Unverified Allergy, Unknown, 06/08/21) REVIEW OF SYSTEMS: 12 point ROS reviewed with patient. Pertinent positives mentioned above. Otherwise negative. PHYSICAL EXAM: GENERAL: alert, weak, awake oriented x 3 HEENT: EOMI, Sclera non icteric, moist mucosa NECK: Supple, no JVD, trachea midline LUNGS: Clear breath sounds bilaterally. No wheezes HEART: Regular rate and rhythm. Normal S1 and S2, without murmurs ABD: Abdomen soft, nontender. Bowel sounds present EXT: No clubbing cyanosis or edema NEURO: Alert and oriented to person, follows commands Vital Signs (last 8hr) Date Time Temp Pulse Resp B/P (MAP) Pulse Ox O2 Delivery O2 Flow Rate FiO2 03/18/24 20:03 97.5 96 16 135/91 93 Room Air 0 03/18/24 20:03 97.5 96 16 135/91 93 Room Air* 0 21 LABS: Hematology Labs: Test 03/18/24 20:30 Range/Units White Blood Count 9.0 4.8-10.8 K/uL Red Blood Count 3.83 L 4.00-5.50 MIL/uL Hemoglobin 13.0 12.0-16.0 g/dL Hematocrit 38.5 36-48 % Mean Corpuscular Volume 100.5 H 79-99 fL Mean Corpuscular Hemoglobin 33.9 H 27.0-33.0 pg Mean Corpuscular Hemoglobin Concent 33.8 32.0-36.0 g/dL Red Cell Distribution Width 14.4 11.0-15.5 % Platelet Count 200 130-400 K/uL Mean Platelet Volume 9.8 7.5-10.5 fL Immature Granulocyte % (Auto) 0.1 0-1 % Neutrophils (%) (Auto) 49.8 40.0-77.0 % Lymphocytes (%) (Auto) 35.3 21.0-51.0 % Monocytes (%) (Auto) 13.3 H 3.0-13.0 % Eosinophils (%) (Auto) 1.2 0.0-8.0 % Basophils (%) (Auto) 0.3 0.0-5.0 % Neutrophils # (Auto) 4.5 1.8-7.7 K/uL Lymphocytes # (Auto) 3.2 1.0-4.8 K/uL Monocytes # (Auto) 1.2 H 0.1-1.0 K/uL Eosinophils # (Auto) 0.11 0.00-0.70 K/uL Basophils # (Auto) 0.03 0.00-0.20 K/uL Absolute Immature Granulocyte (auto 0.01 0-1 K/uL Nucleated Red Blood Cells 0.0 0.0-0.19 % Chemistry Labs: Test 03/18/24 20:30 Range/Units Sodium Level 134 L 136-145 mmol/L Potassium Level 3.9 3.5-5.1 mmol/L Chloride Level 98 L 101-111 mmol/L Carbon Dioxide Level 27 21-32 mmol/L Blood Urea Nitrogen 7 7-18 mg/dL Creatinine 0.8 0.5-1.0 mg/dL Glomerular Filtration Rate Calc 81 >90 mL/min Random Glucose 103 70-105 mg/dL Total Calcium 9.2 8.5-10.1 mg/dL Troponin I High Sensitivity 6 4-50 ng/L B-Type Natriuretic Peptide 55 0-100 pg/mL Coagulation Labs: Test 03/18/24 20:30 Range/Units Prothrombin Time 11.9 H 9.6-11.6 SEC Prothromb Time International Ratio 1.11 0.85-1.15 Activated Partial Thromboplast Time 30.1 26.3-35.5 SEC DIAGNOSTICS / RADIOLOGY RESULTS: CHEST 1VW HISTORY: Chest pain COMPARISON: 03/13/2024 FINDINGS: A frontal projection of the chest was obtained. No acute pulmonary infiltrates is seen. The heart is borderline enlarged. Prominent interstitial markings are seen. Postop changes are seen of the cervical spine. Aortic calcifications are seen. IMPRESSION: 1. No acute pulmonary infiltrate is seen. Prominent interstitial markings are seen. PLAN NEURO: Minimize central acting medications as possible. Maintain fall precautions, adequate lighting during the day PULMONARY: Supplemental 02 as needed. Maintain aspiration precautions at all times CARDIOVASCULAR: Follow hemodynamics. Vital signs per facility protocol GI & NUTRITION: Continue with nutritional support. Continue stool softeners and laxatives as needed. KIDNEYS & ELECTROLYTES: Strict monitoring of intake, output and overall fluid balance. Avoid nephrotoxic medications to the extent possible. Medications to be dosed according to renal function. Monitor electrolytes and replace as needed ENDOCRINE: Maintain blood glucose between 100-180 at all times. Hypoglycemia protocol in place INFECTIOUS DISEASE: Trend temperature, WBC and procalcitonin level Follow cultures, deescalate antibiotics as soon as possible. Panculture if new onset fever ONCOLOGY/HEMATOLOGY/COAGULATION: Monitor for s/s of bleeding Monitor hemoglobin, coagulation studies as needed SKIN: Pressure ulcer prevention per facility protocol Specialty mattress ORTHO/REHAB: Continue PT/OT Prophylaxis: Continue GI and DVT prophylaxis Code Status: Full Resuscitation Disposition: TBD Other: Total patient care time exceeds 35 minutes excluding all procedures. Supervising physician: EDEL Lino AGACNP Mar 18, 2024 22:06
[2024-03-18 22:15] LABS: APPEARANCE,URINE CLEAR (CLEAR); BILIRUBIN,URINE NEGATIVE (NEGATIVE); COLOR,URINE YELLOW (YELLOW); GLUCOSE, URINE (UA) NEGATIVE (NEGATIVE); KETONES,URINE NEGATIVE (NEGATIVE); LEUKOCYTE ESTERASE ,URINE 75 Leu/uL (NEGATIVE); NITRATE,URINE NEGATIVE (NEGATIVE); OCCULT BLOOD,URINE NEGATIVE (NEGATIVE); PH,URINE 6.5 (5.0-8.0); PROTEIN,URINE 20 mg/dL (NEGATIVE)
[2024-03-18 22:18] LABS: ADD UA MICROSCOPIC YES
[2024-03-18] MEDS: 0.9%NACL 1000ML 1,000 ML IV SCH (22:22)
[2024-03-18 22:24] LABS: BACTERIA,URINE MOD /HPF (None Seen); MUCUS,URINE FEW LPF (None Seen); SQUAMOUS EPITHELIAL CELL,UR FEW /HPF (0-2)
[2024-03-18] MEDS: acetaMINOPHEN 325 MG TAB PO PRN (22:28)
[2024-03-18] MEDS ORDERED: acetaMINOPHEN 650 MG SUPPOSITORY RC PRN (22:30)
[2024-03-18] MEDS ORDERED: ALBUTEROL 0.083% 2.5 MG/3 ML INH IH PRN (22:30)
[2024-03-18 23:26] VITALS: PULSE 79; RESP 17; O2SAT 96
[2024-03-19] VITALS (8 sets, daily range): BP systolic 153–173; BP diastolic 74–99; PULSE 64–104; RESP 18–20; TEMP 97.1–98.6; O2SAT 96–97
[2024-03-19 05:39] LABS: BASOPHILS # (AUTO) 0.02 K/uL (0.00-0.20); BASOPHILS % (AUTO) 0.3 % (0.0-5.0); EOSINOPHILS # (AUTO) 0.17 K/uL (0.00-0.70); EOSINOPHILS % (AUTO) 2.7 % (0.0-8.0); HEMATOCRIT 37.3 % (36-48); IMMATURE GRANULOCYTE ABSOLUTE 0.02 K/uL (0-1); LYMPHOCYTES # (AUTO) 2.3 K/uL (1.0-4.8); LYMPHOCYTES % (AUTO) 35.8 % (21.0-51.0); MEAN CORPUSCULAR HEMOGLOBIN 33.6 pg (27.0-33.0); MEAN CORPUSCULAR HGB CONC 33.2 g/dL (32.0-36.0); MEAN CORPUSCULAR VOLUME 101.1 fL (79-99); MONOCYTES # (AUTO) 0.9 K/uL (0.1-1.0); MONOCYTES % (AUTO) 13.9 % (3.0-13.0); PLATELET COUNT (AUTO) 168 K/uL (130-400); RED BLOOD CELL COUNT(AUTO) 3.69 MIL/uL (4.00-5.50); RED CELL DISTRIBUTION WIDTH 14.4 % (11.0-15.5); WHITE BLOOD COUNT (AUTO) 6.3 K/uL (4.8-10.8)
[2024-03-19 06:06] LABS: CREATININE 0.8 mg/dL (0.5-1.0); MAGNESIUM 1.7 mg/dL (1.80-2.40); PHOSPHORUS 4.2 mg/dL (2.5-4.9); POTASSIUM 4.5 mmol/L (3.5-5.1)
[2024-03-19] MEDS: INSULIN humuLIN R 100 UNIT/ML 3ML SQ SCH (07:30)
--- NOTE | 2024-03-19 07:49 | EKG ---
[facility] Test Date: 2024-03-18 Test Time: 20:23:04 Pat Name: MARYAM REINA Department: [facility] Room: 427 Gender: F Customer Support Associate: [id number] : 1960 Requested By: SOCO PEDROZA Order Number: [id number] Reading MD: oJse Steven Measurements Intervals [place] Rate: 78 P: 25 [place]: 136 QRS: -37 QRSD: 90 T: -7 QT: 426 QTc: 487 Interpretive Statements Sinus rhythm Left axis deviation Compared to ECG 11/07/2023 21:45:51 Sinus tachycardia no longer present T-wave abnormality no longer present Electronically Signed On 03-22-2024 18:37:57 SEO INTERN by Jose Steven Please click the below link to view image of tracing.
--- NOTE | 2024-03-19 08:06 | PN ---
[facility] PROGRESS NOTE Date Patient Seen: Mar 19, 2024 Time of Visit: 08:00 Supervising Physician: [Dr. Pittman] Primary Care Physician: Dr. Goldstein Outpatient Specialists:Dr Peng Malloy Inpatient Consults: [ ] PROBLEM LIST: Acute complicated cystitis, pending urine culture Atypical chest pain, unremarkable EKG and troponin level Anxiety, POA Hyponatremia, POA Hypertension, POA Hyperlipidemia, POA Chronic fatigue, POA Peripheral neuropathy, on Lyrica, POA History of alcohol abuse History of Ecoli on urine culture 02/24/2024 PLAN: Start rocephin Order urine culture Start IS Keep SBP less than 160 P.r.n. hydralazine labetalol Continue cardiac monitoring Trend troponin level Stat EKG and troponin level of with chest pain Bilateral SCDs Heart healthy diet CBC, CMP, magnesium level daily INTERVAL HISTORY: [Blood pressure is 157/88 with a heart rate of 62, afebrile on room air. Patient was mildly hypoxic on admission with a O2 sat of 93% on room air, has improved to 96%. She was admitted for evaluation of atypical chest pain. Per report EKG was unremarkable, there are no images to review. Her troponin on admission was six. CBC and BNP were unremarkable with a WBC of 9, creatinine 0.8. Her UA is positive for small amount of leukocyte esterase, pending urine culture. She has been initiated on IV fluids. We will start Rocephin per most recent urine sensitivity culture on 02/23. CXR on admission was unremarkable. She reports her chest pain is now subsided. She is mildly hypoxemic on room air with O2 sat of 95% at bedside. Denies any prior heart attack. Reports having a LHC a few years ago (unknown how long ago) and states did not have any stents placed. States had an echocardiogram about a yr ago self reported as normal.] REVIEW OF SYSTEMS: 12 point ROS reviewed with patient. Pertinent positives mentioned above. Otherwise negative. PHYSICAL EXAM: GENERAL: alert, weak, awake oriented x 3 HEENT: EOMI, Sclera non icteric, moist mucosa NECK: Supple, no JVD, trachea midline LUNGS: Clear breath sounds bilaterally. No wheezes HEART: Regular rate and rhythm. Normal S1 and S2, without murmurs ABD: Abdomen soft, nontender. Bowel sounds present EXT: No clubbing cyanosis or edema NEURO: Alert and oriented to person, follows commands Vital Signs (last 8hr) Date Time Temp Pulse Resp B/P (MAP) Pulse Ox O2 Delivery O2 Flow Rate FiO2 03/19/24 06:59 64 18 N/A Room Air 21 03/19/24 04:37 62 18 157/88 96 Room Air* 0 21 LABS: Hematology Labs: Test 03/19/24 05:14 Range/Units White Blood Count 6.3 # 4.8-10.8 K/uL Red Blood Count 3.69 L 4.00-5.50 MIL/uL Hemoglobin 12.4 12.0-16.0 g/dL Hematocrit 37.3 36-48 % Mean Corpuscular Volume 101.1 H 79-99 fL Mean Corpuscular Hemoglobin 33.6 H 27.0-33.0 pg Mean Corpuscular Hemoglobin Concent 33.2 32.0-36.0 g/dL Red Cell Distribution Width 14.4 11.0-15.5 % Platelet Count 168 130-400 K/uL Mean Platelet Volume 10.0 7.5-10.5 fL Immature Granulocyte % (Auto) 0.3 0-1 % Neutrophils (%) (Auto) 47.0 40.0-77.0 % Lymphocytes (%) (Auto) 35.8 21.0-51.0 % Monocytes (%) (Auto) 13.9 H 3.0-13.0 % Eosinophils (%) (Auto) 2.7 0.0-8.0 % Basophils (%) (Auto) 0.3 0.0-5.0 % Neutrophils # (Auto) 3.0 1.8-7.7 K/uL Lymphocytes # (Auto) 2.3 1.0-4.8 K/uL Monocytes # (Auto) 0.9 0.1-1.0 K/uL Eosinophils # (Auto) 0.17 0.00-0.70 K/uL Basophils # (Auto) 0.02 0.00-0.20 K/uL Absolute Immature Granulocyte (auto 0.02 0-1 K/uL Nucleated Red Blood Cells 0.0 0.0-0.19 % Chemistry Labs: Test 03/19/24 05:14 03/18/24 20:30 Range/Units Sodium Level 144 136-145 mmol/L Potassium Level 4.5 3.5-5.1 mmol/L Chloride Level 107 101-111 mmol/L Carbon Dioxide Level 31 21-32 mmol/L Blood Urea Nitrogen 7 7-18 mg/dL Creatinine 0.8 0.5-1.0 mg/dL Glomerular Filtration Rate Calc 81 >90 mL/min Random Glucose 93 70-105 mg/dL Total Calcium 8.9 8.5-10.1 mg/dL Phosphorus Level 4.2 2.5-4.9 mg/dL Magnesium Level 1.70 L 1.80-2.40 mg/dL Troponin I High Sensitivity 6 4-50 ng/L B-Type Natriuretic Peptide 55 0-100 pg/mL Coagulation Labs: Test 03/18/24 20:30 Range/Units Prothrombin Time 11.9 H 9.6-11.6 SEC Prothromb Time International Ratio 1.11 0.85-1.15 Activated Partial Thromboplast Time 30.1 26.3-35.5 SEC DIAGNOSTICS / RADIOLOGY RESULTS: CHEST 1VW HISTORY: Chest pain COMPARISON: 03/13/2024 FINDINGS: A frontal projection of the chest was obtained. No acute pulmonary infiltrates is seen. The heart is borderline enlarged. Prominent interstitial markings are seen. Postop changes are seen of the cervical spine. Aortic calcifications are seen. IMPRESSION: 1. No acute pulmonary infiltrate is seen. Prominent interstitial markings are seen. PLAN NEURO: Minimize central acting medications as possible. Maintain fall precautions, adequate lighting during the day PULMONARY: Supplemental 02 as needed. Maintain aspiration precautions at all times CARDIOVASCULAR: Follow hemodynamics. Vital signs per facility protocol GI & NUTRITION: Continue with nutritional support. Continue stool softeners and laxatives as needed. KIDNEYS & ELECTROLYTES: Strict monitoring of intake, output and overall fluid balance. Avoid nephrotoxic medications to the extent possible. Medications to be dosed according to renal function. Monitor electrolytes and replace as needed ENDOCRINE: Maintain blood glucose between 100-180 at all times. Hypoglycemia protocol in place INFECTIOUS DISEASE: Trend temperature, WBC and procalcitonin level Follow cultures, deescalate antibiotics as soon as possible. Panculture if new onset fever ONCOLOGY/HEMATOLOGY/COAGULATION: Monitor for s/s of bleeding Monitor hemoglobin, coagulation studies as needed SKIN: Pressure ulcer prevention per facility protocol Specialty mattress ORTHO/REHAB: Continue PT/OT Prophylaxis: Continue GI and DVT prophylaxis Code Status: Full Resuscitation Disposition: TBD Other: Total patient care time exceeds 35 minutes excluding all procedures. YESICA YEPEZ Mar 19, 2024 08:06
[2024-03-19] MEDS: polyETHYLene GLYCol 3350 17 GM POWD.PACK PO SCH (09:05)
[2024-03-19] MEDS: PANTOPrazole 40 MG TAB DR PO SCH (09:06)
[2024-03-19] MEDS: FOLic ACID 1 MG TABLET PO SCH (09:06)
[2024-03-19] MEDS: ENOXAPARIN SODIUM 40 MG/0.4 ML SYRINGE SQ SCH (09:06)
[2024-03-19] MEDS: ASCORBIC ACID 500 MG TAB PO SCH (09:06)
[2024-03-19] MEDS: CEFTRIAXONE 2GM VIAL IVPB SCH (09:06)
[2024-03-19] MEDS: THIAMINE HCL 100 MG TABLET PO SCH (09:06)
[2024-03-19] MEDS: FERROUS SULFATE 325 MG TABLET.DR PO SCH (09:06)
--- NOTE | 2024-03-19 11:42 | NUR ---
DCP: HOME Pt lives at home alone. States she has provider 30hrs a wk thru [employer] to help with ADLS, transportation, shopping, home management and meal prep. Sister Jenniffer Sorensen [phone] transports as needed. Pt uses a walker with seat, grab bars, shower chair, no HH or HD. PCP is Min Goldstein and uses [facility] for rx. Denies dc needs at this time and will return home at dc Addendum: 03/19/24 at 1145 by WILIAM AGOSTO Amended: Links added.
[2024-03-19] MEDS: MAGNESIUM 2GM PREMIX 50ML 50 ML IV PRN (17:37)
--- NOTE | 2024-03-19 18:26 | NUR ---
bed assigned. attempted x 3 to call report.
--- NOTE | 2024-03-19 22:03 | NUR ---
RBS 97 mg/dL No insulin coverage needed at this time per insulin sliding scale.
[2024-03-19] MEDS ORDERED: PREG100C56 PO (22:08)
[2024-03-19] MEDS ORDERED: OXYB5TAB20 PO (22:10)
[2024-03-20] VITALS: BP 156/90; PULSE 67; RESP 20; TEMP 97.7
--- NOTE | 2024-03-20 00:30 | NUR ---
Pain Patient reported pain score of 3/10 to BLE. Tylenol 325 mg tablets 2 given PO at this time.
--- NOTE | 2024-03-20 01:30 | NUR ---
Pain Assessment Patient denies any pain to BLE at this time.
--- NOTE | 2024-03-20 03:55 | NUR ---
Pain to BLE Patient complaint of pain score 5/10 to BLE. States "neuropathy is very painful right now to my legs". Call placed to [employer] answering service. Pending call back from Ammy MARCUS.
--- NOTE | 2024-03-20 03:57 | NUR ---
Nurse Practitioner call back Received call from Ammy Navarrete CRAB BUTCHER. Advised of patient's neuropathy pain to BLE. As per [employer] CRAB BUTCHER: Morphine 2mg IV push x1 dose. Orders noted and carried out.
[2024-03-20] MEDS: morPHINE 2 MG SYG IVP ONE (04:09)
--- NOTE | 2024-03-20 04:09 | NUR ---
Pain Medication Morphine 2mg IV push given to patient's 22G to right forearm at this time. Patient states "Oh I remember that is the only medication that takes away the pain".
[2024-03-20 04:48] VITALS: BP 157/89; PULSE 66; RESP 21; TEMP 97.6
--- NOTE | 2024-03-20 05:09 | NUR ---
Pain assessment Patient reports improvement to pain to BLE. No further discomfort voiced at this time.
--- NOTE | 2024-03-20 06:34 | NUR ---
RBS 86 mg/dL No insulin coverage needed per insulin sliding scale at this time.
[2024-03-20 07:05] VITALS: PULSE 74; RESP 18; O2SAT 94
[2024-03-20 08:00] VITALS: BP 155/103; PULSE 90; RESP 18; TEMP 97.9; O2SAT 97
[2024-03-20 12:00] VITALS: BP 138/94; PULSE 80; RESP 18; TEMP 98.4
--- NOTE | 2024-03-20 13:28 | DS ---
[facility] DISCHARGE SUMMARY Date Patient Seen: Mar 20, 2024 Time of Visit: 13:27 Supervising Physician: [Dr. Pittman] Primary Care Physician: Dr. Goldstein Outpatient Specialists:Dr Peng Malloy Inpatient Consults: [ ] PROBLEM LIST: Acute complicated cystitis, pending urine culture Atypical chest pain, unremarkable EKG and troponin level Anxiety, POA Hyponatremia, POA Hypertension, POA Hyperlipidemia, POA Chronic fatigue, POA Peripheral neuropathy, on Lyrica, POA History of alcohol abuse History of Ecoli on urine culture 02/24/2024 PLAN: Start rocephin Order urine culture Start IS Keep SBP less than 160 P.r.n. hydralazine labetalol Continue cardiac monitoring Trend troponin level Stat EKG and troponin level of with chest pain Bilateral SCDs Heart healthy diet CBC, CMP, magnesium level daily HOSPITAL COURSE: HPI (per admitting provider) [Blood pressure is 157/88 with a heart rate of 62, afebrile on room air. Patient was mildly hypoxic on admission with a O2 sat of 93% on room air, has improved to 96%. She was admitted for evaluation of atypical chest pain. Per report EKG was unremarkable, there are no images to review. Her troponin on admission was six. CBC and BNP were unremarkable with a WBC of 9, creatinine 0.8. Her UA is positive for small amount of leukocyte esterase, pending urine culture. She has been initiated on IV fluids. We will start Rocephin per most recent urine sensitivity culture on 02/23. CXR on admission was unremarkable. She reports her chest pain is now subsided. She is mildly hypoxemic on room air with O2 sat of 95% at bedside. Denies any prior heart attack. Reports having a LHC a few years ago (unknown how long ago) and [facility] did not have any stents placed. [facility] had an echocardiogram about a yr ago self reported as normal. She is a poor historian complicating HPI. she was monitored overnight d/t hypoxia and respiratory status improved without supplemental oxygen. Her chest pain subsided and she denied any shortness of breath or GI/ symptoms. She was discharged in stable condition. Advised to follow up with PCP for reevaluation and follow up with Dr. Malloy her track repair laborer for further evaluation and management. No antibiotics upon discharge d/t asymptomatic, normal WBC and no fever. 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 PCP notified of patients admission, hospital course and discharge. Continued Medications: Pregabalin (Pregabalin) 100 Mg Capsule 1 CAP PO TID Discontinued Medications: Oxybutynin Chloride (Oxybutynin Chloride) 5 Mg Tablet 5 MG PO BID, TAB PHYSICAL EXAM: GENERAL: alert, weak, awake oriented x 3 HEENT: EOMI, Sclera non icteric, moist mucosa NECK: Supple, no JVD, trachea midline LUNGS: Clear breath sounds bilaterally. No wheezes HEART: Regular rate and rhythm. Normal S1 and S2, without murmurs ABD: Abdomen soft, nontender. Bowel sounds present EXT: No clubbing cyanosis or edema NEURO: Alert and oriented to person, follows commands FOLLOW-UP: Follow-up with PCP tomorrow for reevaluation and repeat UA. Follow up with Dr. Malloy outpatient for evaluation and further recommendation. Hold oxybutynin in setting of UTI and repeat UA, may resume once UTI is r/o. No abx indicated upon discharge to no symptoms, afebrile and normal WBC. RECOMMENDATIONS: See Discharge Instructions This case was seen and discussed with my supervising physician. More than 30 minutes spent on discharge process, including evaluation of the patient, discussion with nursing staff, medication reconciliation and follow-up appointments YESICA YEPEZ Mar 20, 2024 13:28
--- NOTE | 2024-03-20 14:05 | NUR ---
DISCHARGE PATIENT HAS BEEN DISCHARGED HOME. PIV REMOVED, PRESSURE GAUZE AND TAPE APPLIED TO SITE. PATIENT VERBALIZES UNDERSTANDING OF DISCHARGE PAPERWORK. PATIENT IS TO FOLLOW UP WITH PCP AND DR CARLSON. PATIENT VERBALIZES UNDERSTANDING. PATIENT STATES SHE WILL NEED A RIDE HOME, JUAN, MASONRY SUPERVISOR, MADE AWARE. PATIENT PROVIDED UBER TO PREFERRED ADDRESS. TELE MONITOR REMOVED. PATIENT WHEELED DOWN BY PRIMARY NURSE.
== END 2024-03-20 14:05 | disposition home or self-care (01) ==
LOC: EDH 20:01 → EDHIP 22:02 → 4DH 03-19 20:29
PROVIDERS: ADMIT Internal Medicine Critical Care Medicine; ATTEND Internal Medicine Critical Care Medicine
DX: N30.00 Acute cystitis without hematuria (principal); R07.89 Other chest pain; F41.9 Anxiety disorder, unspecified; E87.1 Hypo-osmolality and hyponatremia; E78.5 Hyperlipidemia, unspecified; G62.9 Polyneuropathy, unspecified; I25.10 Atherosclerotic heart disease of native coronary artery without angina pectoris; I10 Essential (primary) hypertension; F10.10 Alcohol abuse, uncomplicated; R50.9 Fever, unspecified; R53.82 Chronic fatigue, unspecified; Z79.899 Other long term (current) drug therapy; Z88.5 Allergy status to narcotic agent; Z88.8 Allergy status to other drugs, medicaments and biological substances; Z86.19 Personal history of other infectious and parasitic diseases; Z90.49 Acquired absence of other specified parts of digestive tract; Y90.9 Presence of alcohol in blood, level not specified
CPT/HCPCS: 99285; 84484 ×2; 80048 ×2; 83880; 85025 ×2; 85610; 85730; 87086; 81001; 36415 ×2; 71045; 93005; 94664; 96372 ×2; 96361 ×4; 96365; 96366 ×2; 96367; 83735; 84100; 82948 ×3; 96375; G0378 ×40; J7030 ×2; J3475; J0696 ×2; J1650 ×2; J2270

== ENCOUNTER 2024-03-31 21:42 | Emergency (ER) | payer OTHER, MEDICARE ==
[~2024-03-31] VITALS: Ht 157.5 cm; Wt 70.3 kg
[~2024-03-31 21:42] MED LIST changes: -LEVO-70 PO; +PREG100C56 PO; -SULF1TAB42 PO
--- NOTE | 2024-03-31 21:55 | NUR ---
Rubina camargo in [facility] - 03/31/24 at 2233 by [id number] PATIENT REPORT CALLED TO FLOOR
[2024-03-31 22:02] LABS: BASOPHILS # (AUTO) 0.06 K/uL (0.00-0.20); BASOPHILS % (AUTO) 0.7 % (0.0-5.0); EOSINOPHILS # (AUTO) 0.07 K/uL (0.00-0.70); EOSINOPHILS % (AUTO) 0.9 % (0.0-8.0); HEMATOCRIT 38.5 % (36-48); IMMATURE GRANULOCYTE ABSOLUTE 0.02 K/uL (0-1); LYMPHOCYTES # (AUTO) 3.2 K/uL (1.0-4.8); LYMPHOCYTES % (AUTO) 39.9 % (21.0-51.0); MEAN CORPUSCULAR HEMOGLOBIN 33.9 pg (27.0-33.0); MEAN CORPUSCULAR HGB CONC 33.5 g/dL (32.0-36.0); MEAN CORPUSCULAR VOLUME 101.3 fL (79-99); MONOCYTES # (AUTO) 0.7 K/uL (0.1-1.0); MONOCYTES % (AUTO) 8.6 % (3.0-13.0); NEUTROPHILS % (AUTO) 49.7 % (40.0-77.0); PLATELET COUNT (AUTO) 160 K/uL (130-400); RED CELL DISTRIBUTION WIDTH 13.7 % (11.0-15.5); WHITE BLOOD COUNT (AUTO) 8.1 K/uL (4.8-10.8)
[2024-03-31 22:11] LABS: CREATININE 0.7 mg/dL (0.5-1.0); POTASSIUM 3.5 mmol/L (3.5-5.1)
[2024-03-31 22:12] LABS: INR 1.16 (0.85-1.15); PROTHROMBIN TIME 12.4 SEC (9.6-11.6)
[2024-03-31 22:13] LABS: PARTIAL THROMBOPLASTIN TIME 28.7 SEC (26.3-35.5)
[2024-03-31 22:20] LABS: MAGNESIUM 1.6 mg/dL (1.80-2.40)
[2024-03-31 22:30] LABS: B-TYPE NATRIURETIC PEPTIDE 42 pg/mL (0-100)
--- NOTE | 2024-04-01 00:10 | ERN ---
General Chief Complaint: Chest Pain Stated Complaint: NON RADIATING CHEST PAIN Time Seen by MD: 21:45 Time Seen by Midlevel: 21:45 Source: patient History of Present Illness Initial Comments Patient is a 64-year-old female with an extensive medical history that includes substance abuse, alcohol abuse, and anxiety who presents to the emergency department with left-sided chest pain. The chest pain she started just prior to arrival. On arrival she states the pain has completely resolved. Denies any other symptoms Allergies: Coded Allergies: codeine (Unverified Allergy, Intermediate, ITCHING , 02/22/22) PER PATIENT STATEMENT ITCHING iodine (Unverified Allergy, Unknown, 06/08/21) propoxyphene (Unverified Allergy, Unknown, 06/08/21) Home Meds Reported Medications Pregabalin (Pregabalin) 100 Mg Capsule, 1 CAP PO TID 03/19/24 Past Medical History Past Medical History: Anxiety, CAD, High Cholesterol, Hypertension, Other Medical History Other: NEUROPATHY. Past Surgical History: Appendectomy, Hysterectomy Surgical History Other: R KNEE, BACK Family History Family History: HTN Social History Social History: ETOH, Lives with family Female( History) History: Not Applicable ROS Dictation CONSTITUTIONAL: Negative except for HPI HEAD/FACE: Negative except for HPI EENT: Negative except for HPI RESPIRATORY: Negative except for HPI GASTROINTESTINAL/ABDOMINAL: Negative except for HPI GENITOURINARY: Negative except for HPI MUSCULOSKELETAL: Negative except for HPI INTEGUMENTARY: Negative except for HPI NEUROLOGICAL/PSYCH: Negative except for HPI HEMATOLOGIC/LYMPHATIC: Negative except for HPI All Systems Negative, Except as noted above. 13 point review of systems assessed and all negative except for above.8 Physical Exam Physical Exam Dictation Vital Signs reviewed General Appearance: Alert, oriented x 3, no acute distress, well developed, nourished. Head and Face: non-traumatic. Eyes: PERRL, pink conjunctivas, eyelid no trauma, anterior chamber with arcus senilis. Ears: Pinnas intact and no signs of trauma or erythema ear canals clear and no discharge TM no erythema Nose: No discharge, no bleeding. Oropharynx: Mouth normal, tongue pink, pharynx clear,no erythema, tonsils no exudates, no abscesses noted, mucous membrane moist Neck: Supple, non-tender, no thyromegaly, no masses, no JVD, no bruits Breast:Deferred Chest:No tenderness, no crepitus, no paradoxical movement, no retractions Lungs:Clear, well-ventilated, symmetric, no rales, no wheezing, no rhonchi, no stridor, good breath sounds bilaterally Heart: Regular rate, regular rhythm, no murmur, no gallops Vascular: no peripheral edema, Abdomen: Soft, positive bowel sounds, nondistended, no guarding, nontender, no rebound, no masses no hepatomegaly, no splenomegaly, no Bruce's sign, no hernias. Rectal: Deferred Genital: Deferred Neurological: Normal speech, motor function intact, sensory function intact Musculoskeletal: Neck nontender, full range of motion, back nontender, full range of motion, Extremities: nontender, full range of motion Skin: Color pink, dry, no turgor, no rash, no lacerations, no abrasions, no contusions. Lymphatic: Deferred Results Laboratory and Microbiology Lab and Micro Result Laboratory Tests Test 03/31/24 21:56 White Blood Count 8.1 K/uL (4.8-10.8) Red Blood Count 3.80 MIL/uL (4.00-5.50) L Hemoglobin 12.9 g/dL (12.0-16.0) Hematocrit 38.5 % (36-48) Mean Corpuscular Volume 101.3 fL (79-99) H Mean Corpuscular Hemoglobin 33.9 pg (27.0-33.0) H Mean Corpuscular Hemoglobin Concent 33.5 g/dL (32.0-36.0) Red Cell Distribution Width 13.7 % (11.0-15.5) Platelet Count 160 K/uL (130-400) Mean Platelet Volume 9.9 fL (7.5-10.5) Immature Granulocyte % (Auto) 0.2 % (0-1) Neutrophils (%) (Auto) 49.7 % (40.0-77.0) Lymphocytes (%) (Auto) 39.9 % (21.0-51.0) Monocytes (%) (Auto) 8.6 % (3.0-13.0) Eosinophils (%) (Auto) 0.9 % (0.0-8.0) Basophils (%) (Auto) 0.7 % (0.0-5.0) Neutrophils # (Auto) 4.0 K/uL (1.8-7.7) Lymphocytes # (Auto) 3.2 K/uL (1.0-4.8) Monocytes # (Auto) 0.7 K/uL (0.1-1.0) Eosinophils # (Auto) 0.07 K/uL (0.00-0.70) Basophils # (Auto) 0.06 K/uL (0.00-0.20) Absolute Immature Granulocyte (auto 0.02 K/uL (0-1) Nucleated Red Blood Cells 0.0 % (0.0-0.19) Prothrombin Time 12.4 SEC (9.6-11.6) H Prothromb Time International Ratio 1.16 (0.85-1.15) H Activated Partial Thromboplast Time 28.7 SEC (26.3-35.5) Sodium Level 139 mmol/L (136-145) Potassium Level 3.5 mmol/L (3.5-5.1) Chloride Level 102 mmol/L (101-111) Carbon Dioxide Level 28 mmol/L (21-32) Blood Urea Nitrogen 5 mg/dL (7-18) L Creatinine 0.7 mg/dL (0.5-1.0) Glomerular Filtration Rate Calc 95 mL/min (>90) Random Glucose 103 mg/dL (70-105) Total Calcium 8.7 mg/dL (8.5-10.1) Magnesium Level 1.60 mg/dL (1.80-2.40) L Total Creatine Kinase 70 U/L (21-232) # Troponin I High Sensitivity 5 ng/L (4-50) B-Type Natriuretic Peptide 42 pg/mL (0-100) Labs Reviewed?: Yes EKG/XRAY/US/CT/MRI EKG Comment Date: March 31, 2024 Time: 10:03 p.m. Ventricular rate: 82 beats per minute RI interval: 155 QRS duration: 87 QT/QTc: 423/494 EKG interpretation: Normal sinus rhythm with a ventricular rate of 82 beats per minute, no ST elevations or bundle branch blocks Reviewed by ED Attending MDM MDM: Differential diagnosis: ACS, anxiety, pneumonia, pulmonary edema, There are no social concerns with this patient. Prescription drug management Prescriptions will include: None Medical management and examination interpretation discussions were had by me with other qualified healthcare professionals as indicated for the patient's care. ED Course Orders Procedure Category Date Status Time 12 Lead Ekg Tracing- EKG 03/31/24 Logged Technical 21:45 B-Type Natriuretic LAB 03/31/24 Complete Peptide 21:45 Basic Metabolic Panel LAB 03/31/24 Complete 21:45 Cbc With Differential LAB 03/31/24 Complete 21:45 Creatine Kinase, Total LAB 03/31/24 Complete 21:45 Magnesium LAB 03/31/24 Complete 21:45 Urinalysis Profile LAB 03/31/24 Logged 21:45 Pt And Ptt LAB 03/31/24 Complete 21:45 Troponin I High LAB 03/31/24 Complete Sensitivity 21:45 Chest 1vw RAD 03/31/24 Taken 21:45 Gabapentin 100 Mg Cap PHA 03/31/24 Complete (Neurontin 100 Mg 23:30 Current Medications Medications (Trade) Dose Ordered Sig/Isidro Route PRN Reason Start Time Stop Time Status Last Admin Dose Admin Gabapentin (NEURontin 100 mg CAP) 200 mg ONCE PO 03/31/24 23:30 04/01/24 01:06 DC 04/01/24 00:28 Vital Signs Date Time Temp Pulse Resp B/P (MAP) Pulse Ox O2 Delivery O2 Flow Rate FiO2 04/01/24 00:33 98.2 87 16 151/92 99 Room Air* 0 03/31/24 22:45 98.1 82 18 142/80 96 Room Air* 0 03/31/24 21:45 98.1 89 16 117/82 99 Room Air HEART Score Response (Comments) Value History: Low suspicion (0) 0 EKG: Normal 0 Age: > 65yrs (+2) 2 Risk Factors: 1-2 risk factors (+1) 1 Initial Troponin: Normal limit (0) 0 HEART Score Risk: Low Risk for MACE (1-3) Total 3 DX & DISP Disposition: Discharge Departure Impression: Primary Impression: Non-cardiac chest pain Condition: Stable Additional Instructions: Unremarkable. Your cardiac enzymes are negative. Your EKG does not show any evidence of a heart attack Your chest x-ray does not show any acute abnormalities. You will need to follow up with your primary care doctor in 2-3 days for repeat evaluation. Return to the ER for any new or worsening symptoms Referrals: REFUGIO PASCUAL MD (PCP) Time of Disposition: 00:12 I have reviewed the case, and I agree with, Diagnosis and Plan I performed the substantive portion of the visit. I have reviewed and personally made and approve the management plan that is documented in the note by myself or the NICKO. I acknowledge for responsibility for the patient's management plan. ELVER DUKE Apr 01, 2024 00:10
[2024-04-01] MEDS: GABApentin 100 MG CAPSULE PO SCH (00:28)
[2024-04-01 00:33] VITALS: BP 151/92; PULSE 87; RESP 16; TEMP 98.3; O2SAT 99
--- NOTE | 2024-04-01 00:49 | NUR ---
ARIAN SIBLING UNABLE TO PERSONAL LINES UNDERWRITER PATIENT; NOTIFIED OF PATIENTS D/C.
--- NOTE | 2024-04-01 00:50 | NUR ---
ARSENIO, DAUGHTER UNABLE TO PICK PATIENT UP; NOTIFIED OF PATIENT D/C
--- NOTE | 2024-04-01 00:50 | NUR ---
LUMA APARICIO SIBLING UNABLE TO MED DIR PATIENT; NOTIFIED OF PATIENTS D/C.
--- NOTE | 2024-04-01 08:42 | HMCIMG ---
Exam Type: CHEST 1VW Clinical Information: chest pain Comparison: None Findings: The lungs are clear of infiltrates. The heart is enlarged. Bony and soft tissue structures of the chest wall are unremarkable. IMPRESSION: Cardiomegaly. Clear lungs.
--- NOTE | 2024-04-02 07:35 | EKG ---
[facility] Test Date: 2024-03-31 Test Time: 22:03:12 Pat Name: MARYAM REINA Department: ED Room: Gender: F Registered Occupational Therapist: [id number] : 1960 Requested By: ELVER DUKE Order Number: [id number] Reading MD: Sana Bill Measurements Intervals [place] Rate: 82 P: 3 FL: 155 QRS: -30 QRSD: 87 T: -17 QT: 423 QTc: 494 Interpretive Statements Sinus rhythm Inferior infarct, old Probable anterior infarct, age indeterminate Compared to ECG 03/18/2024 20:23:04 Myocardial infarct finding now present Left-axis deviation no longer present Electronically Signed On 04-02-2024 10:42:57 RAIL WALKER by Sana Bill Please click the below link to view image of tracing.
== END 2024-04-01 00:55 | disposition home or self-care (01) ==
LOC: EDBD 21:42 → EDH 21:42
DX: R07.89 Other chest pain (principal); E78.00 Pure hypercholesterolemia, unspecified; I10 Essential (primary) hypertension; I25.10 Atherosclerotic heart disease of native coronary artery without angina pectoris; Z79.899 Other long term (current) drug therapy; Z88.5 Allergy status to narcotic agent; Z88.8 Allergy status to other drugs, medicaments and biological substances; Z90.49 Acquired absence of other specified parts of digestive tract; Z90.710 Acquired absence of both cervix and uterus; Z91.041 Radiographic dye allergy status; Z98.890 Other specified postprocedural states
CPT/HCPCS: 36415; 71045; 80048; 82550; 83735; 83880; 84484; 85025; 85610; 85730; 93005; 99285

== ENCOUNTER 2024-04-03 21:38 | Emergency (ER) | payer OTHER, MEDICARE ==
[~2024-04-03] VITALS: Ht 157.5 cm; Wt 70.3 kg
[2024-04-03 22:43] LABS: CREATININE 0.6 mg/dL (0.5-1.0); MAGNESIUM 1.6 mg/dL (1.80-2.40)
--- NOTE | 2024-04-03 22:46 | EKG ---
[facility] Test Date: 2024-04-03 Test Time: 22:39:32 Pat Name: MARYAM REINA Department: ED Room: Gender: F Nutrition Partner: [id number] : 1960 Requested By: JESSICA HARTMAN Order Number: [id number] Reading MD: Sana Bill Measurements Intervals [place] Rate: 74 P: 11 DC: 158 QRS: -31 QRSD: 96 T: 0 QT: 431 QTc: 477 Interpretive Statements Sinus rhythm Left axis deviation Low voltage, precordial leads Compared to ECG 03/31/2024 22:03:12 Left-axis deviation now present Low QRS voltage now present Myocardial infarct finding no longer present Electronically Signed On 04-04-2024 17:25:58 SEWING MACHINE OPERATOR by Sana Bill Please click the below link to view image of tracing.
[2024-04-03 22:52] LABS: BASOPHILS # (AUTO) 0.03 K/uL (0.00-0.20); BASOPHILS % (AUTO) 0.4 % (0.0-5.0); EOSINOPHILS # (AUTO) 0.11 K/uL (0.00-0.70); EOSINOPHILS % (AUTO) 1.6 % (0.0-8.0); HEMATOCRIT 36.2 % (36-48); IMMATURE GRANULOCYTE ABSOLUTE 0.03 K/uL (0-1); LYMPHOCYTES # (AUTO) 2.6 K/uL (1.0-4.8); LYMPHOCYTES % (AUTO) 37.6 % (21.0-51.0); MEAN CORPUSCULAR HEMOGLOBIN 34.4 pg (27.0-33.0); MEAN CORPUSCULAR HGB CONC 33.1 g/dL (32.0-36.0); MEAN CORPUSCULAR VOLUME 103.7 fL (79-99); MONOCYTES # (AUTO) 0.8 K/uL (0.1-1.0); MONOCYTES % (AUTO) 11.6 % (3.0-13.0); NEUTROPHILS # (AUTO) 3.3 K/uL (1.8-7.7); NEUTROPHILS % (AUTO) 48.4 % (40.0-77.0); PLATELET COUNT (AUTO) 126 K/uL (130-400); RED BLOOD CELL COUNT(AUTO) 3.49 MIL/uL (4.00-5.50); RED CELL DISTRIBUTION WIDTH 13.6 % (11.0-15.5); WHITE BLOOD COUNT (AUTO) 6.8 K/uL (4.8-10.8)
[2024-04-03 23:07] LABS: INR 1.13 (0.85-1.15); PROTHROMBIN TIME 12.1 SEC (9.6-11.6)
[2024-04-03 23:09] LABS: PARTIAL THROMBOPLASTIN TIME 27.6 SEC (26.3-35.5)
[2024-04-03 23:18] LABS: B-TYPE NATRIURETIC PEPTIDE 37 pg/mL (0-100)
[2024-04-03] MEDS: ketOROlac 15MG/ML VIAL (15MG/ML) IV ONE (23:52)
[2024-04-03] MEDS: MAGNESIUM OXIDE 400 MG TABLET PO ONE (23:53)
[2024-04-04] MEDS ORDERED: AZIT500T4 PO (00:34)
--- NOTE | 2024-04-04 00:35 | ERN ---
General Chief Complaint: Anxiety/Panic Attack Stated Complaint: ANXIETY, CHEST DISCOMFORT Time Seen by MD: 21:45 Source: patient History of Present Illness Initial Comments Patient is a 64-year-old female coming in to evaluate her for left-sided discom fort as well as anxiety. Per patient she has been having this stress for a couple of days but this feels as if she stated home and nobody was a something bad could happen and nobody would help her. Patient states that upon arrival from EMS her chest discomfort had resolved. Allergies: Coded Allergies: codeine (Unverified Allergy, Intermediate, ITCHING , 02/22/22) PER PATIENT STATEMENT ITCHING iodine (Unverified Allergy, Unknown, 06/08/21) propoxyphene (Unverified Allergy, Unknown, 06/08/21) Home Meds Reported Medications Pregabalin (Pregabalin) 100 Mg Capsule, 1 CAP PO TID 03/19/24 Past Medical History Past Medical History: Anxiety, CAD, High Cholesterol, Hypertension, Other Medical History Other: NEUROPATHY. Past Surgical History: Appendectomy, Hysterectomy Surgical History Other: R KNEE, BACK Family History Family History: HTN Social History Social History: ETOH, Lives with family Female( History) History: Not Applicable ROS Dictation CONSTITUTIONAL: No chills, no fever, no weakness, no diaphoresis, no malaise. HEAD/FACE: No signs of trauma. EENT: No eye pain, no blurred vision, no tearing, no double vision, no ear pain, no ear discharge, no nose pain, no nasal congestion, no throat pain, no throat swelling, no mouth pain. RESPIRATORY: No cough, no orthopnea, no SOB, no stridor, no wheezing. CARDIOVASCULAR: No chest pain, no edema, no palpitations, no syncope. GASTROINTESTINAL/ABDOMINAL: No abdominal pain, no constipation, no diarrhea, no nausea, no vomiting. GENITOURINARY: No abnormal discharge, no dysuria, no frequent urination, no hematuria. No complaints of pain in the genitals. MUSCULOSKELETAL: No back pain, no gout, no joint pain, no joint swelling, no muscle pain, no muscle stiffness, no neck pain. INTEGUMENTARY: No change in color, no change in hair/nails, no dryness, no lesion, no lumps, no rash. NEUROLOGICAL/PSYCH: No anxiety, not depressed, no emotional problem, no headache, no numbness, no pre-existing deficit, no history of seizures, no tremors, no weakness. HEMATOLOGIC/LYMPHATIC: Not anemic, no history of blood clots, no apparent bleeding, no bruising, glands not swollen. All Systems Negative, Except as Noted. Physical Exam Physical Exam Dictation VITAL SIGNS: Reviewed. GENERAL APPEARANCE: Alert, oriented x3, no acute distress, obese. HEAD AND FACE: Non-traumatic. EYES: PERRL, pink conjunctivas, eyelid no trauma, anterior chamber clear. EARS: Pinnas intact and no signs of trauma or erythema. Ear canals clear and no discharge. TMs no erythema. NOSE: No discharge, no bleeding. OROPHARYNX: Mouth normal, teeth no caries, tongue pink. Pharynx clear, no erythema. Tonsils no exudates, no abscesses noted. Mucous membrane moist. NECK: Supple, non-tender, no thyromegaly, no masses, no JVD, no bruits. BREAST: Deferred. CHEST: tenderness, no crepitus, no paradoxical movement, no retractions. LUNGS: Clear, well-ventilated, symmetric, no rales, no wheezing, no rhonchi, no stridor, good breath sounds bilaterally. HEART: Regular rate, regular rhythm, no murmur, no gallops. VASCULAR: No peripheral edema. ABDOMEN: Soft, positive bowel sounds, nondistended, no guarding, nontender, no rebound, no masses no hepatomegaly, no splenomegaly, no Bruce's sign, no hernias. RECTAL: Deferred. GENITAL: Deferred. NEUROLOGICAL: Normal speech, gross motor function intact, gross sensory function intact. MUSCULOSKELETAL: Neck nontender, full range of motion, back nontender, full range of motion. EXTREMITIES: Nontender, full range of motion. SKIN: Color pink, dry, no turgor, no rash, no lacerations, no abrasions, no contusions. LYMPHATICS: Deferred. Results Laboratory and Microbiology Lab and Micro Result Laboratory Tests Test 04/03/24 22:15 04/03/24 22:20 04/03/24 23:52 White Blood Count 6.8 K/uL (4.8-10.8) Red Blood Count 3.49 MIL/uL (4.00-5.50) L Hemoglobin 12.0 g/dL (12.0-16.0) Hematocrit 36.2 % (36-48) Mean Corpuscular Volume 103.7 fL (79-99) H Mean Corpuscular Hemoglobin 34.4 pg (27.0-33.0) H Mean Corpuscular Hemoglobin Concent 33.1 g/dL (32.0-36.0) Red Cell Distribution Width 13.6 % (11.0-15.5) Platelet Count 126 K/uL (130-400) L Mean Platelet Volume 10.5 fL (7.5-10.5) Immature Granulocyte % (Auto) 0.4 % (0-1) Neutrophils (%) (Auto) 48.4 % (40.0-77.0) Lymphocytes (%) (Auto) 37.6 % (21.0-51.0) Monocytes (%) (Auto) 11.6 % (3.0-13.0) Eosinophils (%) (Auto) 1.6 % (0.0-8.0) Basophils (%) (Auto) 0.4 % (0.0-5.0) Neutrophils # (Auto) 3.3 K/uL (1.8-7.7) Lymphocytes # (Auto) 2.6 K/uL (1.0-4.8) Monocytes # (Auto) 0.8 K/uL (0.1-1.0) Eosinophils # (Auto) 0.11 K/uL (0.00-0.70) Basophils # (Auto) 0.03 K/uL (0.00-0.20) Absolute Immature Granulocyte (auto 0.03 K/uL (0-1) Nucleated Red Blood Cells 0.0 % (0.0-0.19) B-Type Natriuretic Peptide 37 pg/mL (0-100) Prothrombin Time 12.1 SEC (9.6-11.6) H Prothromb Time International Ratio 1.13 (0.85-1.15) Activated Partial Thromboplast Time 27.6 SEC (26.3-35.5) Sodium Level 145 mmol/L (136-145) Potassium Level 4.0 mmol/L (3.5-5.1) Chloride Level 107 mmol/L (101-111) Carbon Dioxide Level 30 mmol/L (21-32) Blood Urea Nitrogen 7 mg/dL (7-18) Creatinine 0.6 mg/dL (0.5-1.0) Glomerular Filtration Rate Calc 99 mL/min (>90) Random Glucose 101 mg/dL (70-105) Total Calcium 8.2 mg/dL (8.5-10.1) L Magnesium Level 1.60 mg/dL (1.80-2.40) L Total Creatine Kinase 59 U/L (21-232) Troponin I High Sensitivity 4 ng/L (4-50) < 4 ng/L (4-50) L Labs Reviewed?: Yes EKG/XRAY/US/CT/MRI EKG Comment 04/03/2024 time 10:39 p.m. Ventricular rate 74 Sinus rhythm pr [address] wave elevation or depression X-RAY Comment Chest x-ray-mild pulmonary infiltrates MDM MDM: Differential diagnosis: Anxiety, GERD, chest discomfort, bilateral pulmonary infiltrates Patient is a 64 year female, history evaluated for chest discomfort and anxiety. Patient states that while every two ER her symptoms have subsided. During ER visit patient has had mild chest discomfort cardiac workup negative for acute findings. Chest x-ray small bilateral pulmonary infiltrates antibiotics she provided. Patient will be discharged in stable condition. ED Course Orders Procedure Category Date Status Time Cbc With Differential LAB 04/03/24 Complete 22:04 Prothrombin Time With LAB 04/03/24 Complete INR 22:04 B-Type Natriuretic LAB 04/03/24 Complete Peptide 22:04 Chest 1vw RAD 04/03/24 Taken 22:04 12 Lead Ekg Tracing- EKG 04/03/24 Complete Technical 22:04 Magnesium LAB 04/03/24 Complete 22:04 Creatine Kinase, Total LAB 04/03/24 Complete 22:04 Troponin I High LAB 04/03/24 Complete Sensitivity 22:04 Urinalysis Profile LAB 04/03/24 Logged 22:04 Partial LAB 04/03/24 Complete Thromboplastin Time 22:04 Basic Metabolic Panel LAB 04/03/24 Complete 22:04 Magnesium Oxide PHA 04/04/24 Complete (Mag-Ox) 00:00 Troponin I High LAB 04/03/24 Complete Sensitivity 23:37 Ketorolac PHA 04/04/24 Complete Tromethamine 15mg/Ml 00:00 Current Medications Medications (Trade) Dose Ordered Sig/Isidro Route PRN Reason Start Time Stop Time Status Last Admin Dose Admin Ketorolac Tromethamine (toRADol) 15 mg ONCE ONCE IV 04/04/24 00:00 04/04/24 00:01 DC 04/03/24 23:52 Magnesium Oxide (Mag-Ox) 400 mg ONCE ONCE PO 04/04/24 00:00 04/04/24 00:01 DC 04/03/24 23:53 Vital Signs Date Time Temp Pulse Resp B/P (MAP) Pulse Ox O2 Delivery O2 Flow Rate FiO2 04/03/24 21:40 98.1 80 16 114/80 94 Room Air 0 HEART Score Response (Comments) Value History: Low suspicion (0) 0 EKG: Normal 0 Age: > 65yrs (+2) 2 Risk Factors: No known risk factors (0) 0 Initial Troponin: Normal limit (0) 0 HEART Score Risk: Low Risk for MACE (1-3) Total 2 DX & DISP Disposition: Discharge Departure Impression: Primary Impression: Non-cardiac chest pain Additional Impressions: Anxiety, Pulmonary infiltrates on CXR Condition: Stable Scripts Azithromycin (Azithromycin) 500 Mg Tablet 1 TAB PO DAILY for 5 Days, #5 TAB 0 Refills Prov: JESSICA HARTMAN MD 04/04/24 Additional Instructions: Discharge home. Rest. Follow up with primary care DrJewel in 24 hours. Return to the ER for any acute change. Patient was also advised to follow-up with primary care physician in 1 to 2 days for continued monitoring. All instructions were given to laymans term and patient agreeable to discharge and proper follow-up. Referrals: REFUGIO PASCUAL MD (PCP) Time of Disposition: 00:32 JESSICA HARTMAN MD Apr 04, 2024 00:35
[2024-04-04 00:36] VITALS: BP 108/78; PULSE 76; RESP 16; TEMP 98.1; O2SAT 96
--- NOTE | 2024-04-04 08:41 | HMCIMG ---
CHEST 1VW REASON: chest COMPARISON: 04/30/2024 FINDINGS: Single view of the chest was obtained. Lungs are clear. Heart size is normal. There is no pulmonary vascular congestion. Mediastinum and bony thorax appear unremarkable. There is surgical hardware in the lower cervical spine. IMPRESSION: 1. No acute process seen in the chest.
== END 2024-04-04 00:48 | disposition home or self-care (01) ==
LOC: EDH 21:38
DX: R07.89 Other chest pain (principal); F41.9 Anxiety disorder, unspecified; R91.8 Other nonspecific abnormal finding of lung field; E78.00 Pure hypercholesterolemia, unspecified; I10 Essential (primary) hypertension; Z79.899 Other long term (current) drug therapy; Z82.49 Family history of ischemic heart disease and other diseases of the circulatory system; Z88.5 Allergy status to narcotic agent; Z88.8 Allergy status to other drugs, medicaments and biological substances; Z90.49 Acquired absence of other specified parts of digestive tract; Z90.710 Acquired absence of both cervix and uterus; Z91.041 Radiographic dye allergy status
CPT/HCPCS: 99285; 96374; 71045; 82550; 83735; 84484 ×2; 80048; 83880; 85025; 85610; 85730; 36415; 93005; J1885

== ENCOUNTER 2024-04-08 18:23 | Emergency (ER) | payer OTHER, MEDICARE ==
[~2024-04-08] VITALS: Ht 157.5 cm; Wt 70.3 kg
[~2024-04-08 18:23] MED LIST changes: +AZIT500T4 PO
[2024-04-08 19:32] LABS: BASOPHILS # (AUTO) 0.04 K/uL (0.00-0.20); BASOPHILS % (AUTO) 0.6 % (0.0-5.0); EOSINOPHILS # (AUTO) 0.07 K/uL (0.00-0.70); EOSINOPHILS % (AUTO) 1.1 % (0.0-8.0); IMMATURE GRANULOCYTE ABSOLUTE 0.01 K/uL (0-1); LYMPHOCYTES # (AUTO) 2.4 K/uL (1.0-4.8); LYMPHOCYTES % (AUTO) 36.8 % (21.0-51.0); MEAN CORPUSCULAR HEMOGLOBIN 33.8 pg (27.0-33.0); MEAN CORPUSCULAR HGB CONC 33.3 g/dL (32.0-36.0); MEAN CORPUSCULAR VOLUME 101.5 fL (79-99); MONOCYTES # (AUTO) 0.8 K/uL (0.1-1.0); MONOCYTES % (AUTO) 11.7 % (3.0-13.0); NEUTROPHILS # (AUTO) 3.3 K/uL (1.8-7.7); NEUTROPHILS % (AUTO) 49.6 % (40.0-77.0); PLATELET COUNT (AUTO) 145 K/uL (130-400); RED BLOOD CELL COUNT(AUTO) 3.94 MIL/uL (4.00-5.50); RED CELL DISTRIBUTION WIDTH 14.1 % (11.0-15.5); WHITE BLOOD COUNT (AUTO) 6.6 K/uL (4.8-10.8)
--- NOTE | 2024-04-08 19:48 | ERN ---
ED Note History of Present Illness Stated Complaint: SOB Chief Complaint: Shortness of Breath Time Seen by MD: 19:40 Dictation: This is a 64-year-old female presented to the emergency room complaining of shortness of breath that started this afternoon. She stated that she got to go to the bathroom and could not catch her. She came back and laid without significant improvement. No chest pain, diaphoresis palpitations or syncope. She denied any fevers chills, cough sputum or hemoptysis. No history of any travel or sick contacts. During my evaluation she denied any shortness of breath and started complaining of soreness in the left side chest. She had multiple somatic complaints was ruminating about her job and constantly reminding that she lives by herself and she needs to check herself out in the ER for any complaints Temperature 97.5 pulse 90 respirations 20 blood pressure 150/90 pulse oximetry 98% on room air Her chronic medical problems include hypertension, hypercholesterolemia, anxiety, CAD but details are unclear at this time Allergies: Coded Allergies: codeine (Unverified Allergy, Intermediate, ITCHING , 02/22/22) PER PATIENT STATEMENT ITCHING iodine (Unverified Allergy, Unknown, 06/08/21) propoxyphene (Unverified Allergy, Unknown, 06/08/21) Home Meds Active Scripts Azithromycin (Azithromycin) 500 Mg Tablet, 1 TAB PO DAILY for 5 Days, #5 TAB 0 Refills Prov:JESSICA HARTMAN MD 04/04/24 Reported Medications Pregabalin (Pregabalin) 100 Mg Capsule, 1 CAP PO TID 03/19/24 Past Medical History Past Medical History: Anxiety, CAD, High Cholesterol, Hypertension, Other Additional Past Medical Hx: NEUROPATHY. Surgical History: Appendectomy, Hysterectomy Surgical History Other: R KNEE, BACK Family History: HTN Social History: ETOH, Lives with family History: Not Applicable RN Note Reviewed/Agreed w/PFSH: Yes Review of System Dictation Multiple somatic complaints Constitutional: Negative for fever,chills, and weight loss Eyes: Negative for injury, pain,redness, and discharge ENT: Negative for injury,pain or swelling Cardiovascular: Positive for chest pain, no history of palpitations, and edema Respiratory: Positive for shortness of breath, but denied cough, and wheezing, Abdomen/GI: Negative for abdominal pain, nausea, vomiting, diarrhea, and constipation Back: Negative for injury and pain : Negative for injury, bleeding and discharge MS/Extremity: Negative for injury and deformity Skin: Negative for rash, and discoloration Neuro: Negative for headache, weakness, numbness, tingling, and seizure Psych: Negative for suicide ideation, homicidal ideation, and hallucinations Initial Vital Sign VS Vital Signs Date Time Temp Pulse Resp B/P (MAP) Pulse Ox O2 Delivery O2 Flow Rate FiO2 04/08/24 19:07 97.5 90 20 150/90 98 Room Air 04/08/24 19:30 0 21 Physical Exam Dictation General: awake, alert, NAD generally anxious, mild alcohol breath Head/Face: Normocephalic, atraumatic Eyes: PERRL, EOMI, vision at baseline ENT: oral cavity clear, TMs clear, no signs of infection Neck: Trachea midline, supple, no nuchal rigidity Cardiovascular: RRR, normal S1/S2, No MRGs, no JVD Respiratory: CTAB, no respiratory distress, No rales or wheezes Abdomen: Soft, non-tender, non-distended, normal bowel sounds, no guarding or rebound. Skin: Warm, dry, normal turgor, no rash MS/Extremity: Pulses equal, no cyanosis, neurovascular intact, FROM Neuro: COAx4, GCS 15, strength 5/5, CN 2-12 intact, normal cerebellar exam, normal gait, Psych: Normal behavior, mood, and affect normal Extremities-trace edema without any palpable cords, Homans sign is negative Results (Laboratory/Radiology) Laboratory/Radiology Laboratory Tests Test 04/08/24 19:23 04/08/24 19:30 White Blood Count 6.6 K/uL (4.8-10.8) Red Blood Count 3.94 MIL/uL (4.00-5.50) L Hemoglobin 13.3 g/dL (12.0-16.0) Hematocrit 40.0 % (36-48) Mean Corpuscular Volume 101.5 fL (79-99) H Mean Corpuscular Hemoglobin 33.8 pg (27.0-33.0) H Mean Corpuscular Hemoglobin Concent 33.3 g/dL (32.0-36.0) Red Cell Distribution Width 14.1 % (11.0-15.5) Platelet Count 145 K/uL (130-400) Mean Platelet Volume 10.2 fL (7.5-10.5) Immature Granulocyte % (Auto) 0.2 % (0-1) Neutrophils (%) (Auto) 49.6 % (40.0-77.0) Lymphocytes (%) (Auto) 36.8 % (21.0-51.0) Monocytes (%) (Auto) 11.7 % (3.0-13.0) Eosinophils (%) (Auto) 1.1 % (0.0-8.0) Basophils (%) (Auto) 0.6 % (0.0-5.0) Neutrophils # (Auto) 3.3 K/uL (1.8-7.7) Lymphocytes # (Auto) 2.4 K/uL (1.0-4.8) Monocytes # (Auto) 0.8 K/uL (0.1-1.0) Eosinophils # (Auto) 0.07 K/uL (0.00-0.70) Basophils # (Auto) 0.04 K/uL (0.00-0.20) Absolute Immature Granulocyte (auto 0.01 K/uL (0-1) Nucleated Red Blood Cells 0.0 % (0.0-0.19) Sodium Level 142 mmol/L (136-145) Potassium Level 4.6 mmol/L (3.5-5.1) Chloride Level 103 mmol/L (101-111) Carbon Dioxide Level 24 mmol/L (21-32) Blood Urea Nitrogen 8 mg/dL (7-18) Creatinine 0.6 mg/dL (0.5-1.0) Glomerular Filtration Rate Calc 99 mL/min (>90) Random Glucose 96 mg/dL (70-105) Total Calcium 8.9 mg/dL (8.5-10.1) Troponin I High Sensitivity 5 ng/L (4-50) B-Type Natriuretic Peptide 94 pg/mL (0-100) Serum Alcohol 91 mg/dL (0-10) H Urine Color YELLOW (YELLOW) Urine Appearance CLOUDY (CLEAR) H Urine pH 7.0 (5.0-8.0) Urine Specific [place] 1.022 (1.001-1.031) Urine Protein 10 mg/dL (NEGATIVE) H Urine Glucose (UA) NEGATIVE mg/dL (NEGATIVE) Urine Ketones 5 mg/dL (NEGATIVE) H Urine Occult Blood NEGATIVE (NEGATIVE) Urine Nitrate NEGATIVE (NEGATIVE) Urine Bilirubin NEGATIVE mg/dL (NEGATIVE) Urine Urobilinogen >=8.0 mg/dL (0.2-1.0) H Urine Leukocyte Esterase NEGATIVE Luis/uL Urine RBC 0-1 /HPF (0-1) Urine WBC 0-1 /HPF (0-1) Urine Squamous Epithelial Cells FEW /HPF (0-2) Urine Bacteria None /HPF (None Seen) Labs Reviewed?: Yes EKG Comment: Twelve lead EKG done on 04/08/2024 at 7:32 p.m. showed a sinus rhythm with a heart rate of 83, AL interval 142, QRS 97, QT/QTC 411/483. Impression normal sinus rhythm with left axis deviation nonspecific ST changes in the inferior leads and anteroseptal leads. Compared to the EKG done on 04/03 2024, there are no new EKG changes. Interpreted by Dr. Gore 04/03/2024 time 10:39 p.m. Ventricular rate 74 Sinus rhythm pr [address] wave elevation or depression X-RAY Comment: PATIENT: MARYAM REINA MR#: [id number] : 1960 SEX: F AGE: 64 LOCATION: [facility] ORDER 11 STATUS: REG REPORT#: [id number] SERVICE 10 REASON: SOB ORDERING PHYSICIAN: SOCO GORE MD PROCEDURE: CXR1VW - CHEST 1VW CHEST 1VW CLINICAL HISTORY: SOB COMPARISON: 04/03/2024 TECHNIQUE: Single view of the chest was obtained. FINDINGS: Lungs are clear. The cardiac size and mediastinum are unremarkable. The bony structures are stable. IMPRESSION: No acute cardiopulmonary process identified. DICTATED BY: DARRYL BOLAÑOS DO DATE: 04/08/242129 ELECTRONICALLY SIGNED BY: DARRYL BOLAÑOS DO DATE: 04/08/242132 ED Course ED Course Orders Procedure Category Date Status Time Troponin I High LAB 04/08/24 Complete Sensitivity 19:11 Chest 1vw RAD 04/08/24 Resulted 19:11 12 Lead Ekg Tracing- EKG 04/08/24 Logged Technical 19:11 B-Type Natriuretic LAB 04/08/24 Complete Peptide 19:11 Cbc With Differential LAB 04/08/24 Complete 19:11 Basic Metabolic Panel LAB 04/08/24 Complete 19:11 Urinalysis Profile LAB 04/08/24 Complete 19:11 Methylprednisolone PHA 04/08/24 Complete Succ 40mg (Solu-Medro 20:30 Ipratropium/Albuterol PHA 04/08/24 Complete Neb (Duoneb) 20:30 Furosemide 20mg Vial PHA 04/08/24 Complete (Lasix 20mg Vial) 20:30 Ondansetron 4mg Inj PHA 04/08/24 Complete (Zofran 4mg Inj) 21:00 Alcohol, Blood LAB 04/08/24 Complete 21:01 Current Medications Medications (Trade) Dose Ordered Sig/Isidro Route PRN Reason Start Time Stop Time Status Last Admin Dose Admin Albuterol (DUOneb) 1 UDVIAL ONCE ONCE IH 04/08/24 20:30 04/08/24 20:31 DC 04/08/24 20:42 Furosemide (LASix 20MG VIAL) 20 mg ONCE ONCE IV 04/08/24 20:30 04/08/24 20:43 DC 04/08/24 20:25 Methylprednisolone Sodium Succinate (Solu-medROL 40MG) 40 mg ONCE ONCE IVP 04/08/24 20:30 04/08/24 20:43 DC 04/08/24 20:25 Ondansetron HCl (zoFRAN 4MG INJ) 4 mg ONCE ONCE IVP 04/08/24 21:00 04/08/24 21:01 DC 04/08/24 20:47 Vital Signs Date Time Temp Pulse Resp B/P (MAP) Pulse Ox O2 Delivery O2 Flow Rate FiO2 04/08/24 22:04 98.1 76 20 151/90 96 Room Air* 0 21 04/08/24 21:08 98.4 71 18 157/99 96 Room Air* 0 04/08/24 20:43 87 17 04/08/24 20:33 98.1 74 20 193/101 96 Room Air* 0 21 04/08/24 19:30 99.0 68 20 188/103 96 Room Air* 0 21 04/08/24 19:07 97.5 90 20 150/90 98 Room Air We will perform diagnostic labs, advanced imaging and administer medications according to the patient's complaint. Once the results are available, will review and personally interpreted the labs to rule out any acute life- threatening emergency the trach require immediate intervention and treatment. I will then re-evaluate the patient after treatment and diagnostic exams have return to determine whether the patient requires any further testing, can safely be discharged home or need further admission to hospital for additional treatment and evaluation. Labs reviewed CBC within normal limits BNP 7 is also with a normal limits brain natriuretic peptide is 94 troponins are negative. Urinalysis showed positive protein and urobilinogen but no evidence of obvious infection. Chest x-ray shows chronic cardiomegaly with bilateral mild prominence of the markings. No new EKG changes were seen. Patient responded very well to the symptomatic treatment. She became extremely nauseous with a bronchodilator treatment needing some Zofran. On multiple re-evaluations and long discussion with the patient with a daily alcohol i abuse and frequent visits to the ER and need to change lifestyle and habits and perhaps pursue therapy and avoid loneliness to reconnect with her family members. She verbalized full understanding and is admitting to feeling much better and requesting to be discharged to home Medical Decision Making MDM MDM: Differential diagnosis: Anxiety, chronic alcoholism, psychosocial issues and lack of family support Rationale: Tests considered and ordered secondary to shared decision making include: Previous outside records reviewed: Old ER visits. Risk of complication and/or morbidity or mortality of patient management: None Medications-Per medication reconciliation Need for hospitalization: Patient does not meet criteria for hospitalization. Need for emergency major/minor surgery: No There are no social concerns with this patient. Prescription drug management Prescriptions will include symptomatic care Patient's prior external medical records from other ER visits were reviewed by me as indicated. Prior testing and results from previous visits were reviewed. Prior tests were taken into account with medical decision making and resource utilization, independent historian/historians were used to obtain complete medical history. I independently interpreted the test that were performed, results were reviewed by me and considered findings on radiology if ordered. Medical management and examination interpretation discussions were had by me with other qualified healthcare professionals as indicated for the patient's care. Problem List Problem List: (1) Atypical chest pain (2) Chronic fatigue (3) Chronic alcohol abuse (4) Anxiety (5) Hypertension DX & DISP Disposition: Discharge Departure Impression: Primary Impression: Non-cardiac chest pain Additional Impressions: Hypertension, Chronic alcohol abuse Condition: Stable Additional Instructions: Patient and the caregiver have been informed of all the diagnostic tests and the imaging conducted during the today's visit to the emergency room and has verbalized understanding of the results I have personally reviewed and interpreted all diagnostic exams performed here in the ER today as well as the vital signs documented by the nursing staff. The patient is now being discharged to home and should follow up with the primary care physician or the specialist as directed by the ER staff. Follow-up with primary care provider in 1 to 2 days. Take medications as directed here in the emergency room. Okay to continue home medications unless otherwise discussed during your visit in the emergency room today. Return to your nearest emergency room if symptoms worsen or if there is no improvement. Call 911 if you need immediate assistance. Take Tylenol or Motrin [id number] as needed and if no contraindications are present. Increase oral hydration. A wound culture or urine culture was ordered here in the emergency room department please follow-up with primary care provider and advise them to get repeat ports from our facility. If you had any Sebastian wrap/splints that were applied here, please do not remove them until you see your primary care or specialty. Referrals: REFUGIO PASCUAL MD (PCP) SOCO GORE MD Apr 08, 2024 19:48
[2024-04-08 19:59] LABS: B-TYPE NATRIURETIC PEPTIDE 94 pg/mL (0-100)
[2024-04-08 20:00] LABS: APPEARANCE,URINE CLOUDY (CLEAR); BILIRUBIN,URINE NEGATIVE (NEGATIVE); COLOR,URINE YELLOW (YELLOW); GLUCOSE, URINE (UA) NEGATIVE (NEGATIVE); KETONES,URINE 5 mg/dL (NEGATIVE); LEUKOCYTE ESTERASE ,URINE NEGATIVE Leu/uL (NEGATIVE); NITRATE,URINE NEGATIVE (NEGATIVE); OCCULT BLOOD,URINE NEGATIVE (NEGATIVE); PROTEIN,URINE 10 mg/dL (NEGATIVE); UROBILINOGEN,URINE >=8.0 mg/dL (0.2-1.0)
[2024-04-08 20:01] LABS: CREATININE 0.6 mg/dL (0.5-1.0); POTASSIUM 4.6 mmol/L (3.5-5.1)
[2024-04-08 20:03] LABS: ADD UA MICROSCOPIC YES
[2024-04-08 20:04] LABS: MUCUS,URINE RARE LPF (None Seen); RBC,URINE 0-1 /HPF (0-1); SQUAMOUS EPITHELIAL CELL,UR FEW /HPF (0-2); WBC,URINE 0-1 /HPF (0-1)
[2024-04-08] MEDS: furoSEMIDE 20MG VIAL IV ONE (20:25)
[2024-04-08] MEDS: Solu-medROL 40MG VIAL IVP ONE (20:25)
[2024-04-08] MEDS: IpraTROPium/alBUTERol SULFATE 3 ML SOLUTION IH ONE (20:42)
[2024-04-08 20:43] VITALS: PULSE 87; RESP 17
[2024-04-08] MEDS: ondanSETRON 4MG INJ IVP ONE (20:47)
--- NOTE | 2024-04-08 21:33 | HMCIMG ---
CHEST 1VW CLINICAL HISTORY: SOB COMPARISON: 04/03/2024 TECHNIQUE: Single view of the chest was obtained. FINDINGS: Lungs are clear. The cardiac size and mediastinum are unremarkable. The bony structures are stable. IMPRESSION: No acute cardiopulmonary process identified.
[2024-04-08 22:04] VITALS: BP 151/90; PULSE 76; RESP 20; TEMP 98.1; O2SAT 96
--- NOTE | 2024-04-08 22:23 | NUR ---
PATIENT DISCHARGED AND PLACED IN LOBBY AT THIS TIME.
--- NOTE | 2024-04-09 10:23 | EKG ---
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
== END 2024-04-08 22:24 | disposition home or self-care (01) ==
LOC: EDH 18:23
DX: R07.89 Other chest pain (principal); I10 Essential (primary) hypertension; F10.10 Alcohol abuse, uncomplicated; E78.00 Pure hypercholesterolemia, unspecified; I25.10 Atherosclerotic heart disease of native coronary artery without angina pectoris; Z79.899 Other long term (current) drug therapy; Z88.5 Allergy status to narcotic agent; Z88.8 Allergy status to other drugs, medicaments and biological substances; Z90.49 Acquired absence of other specified parts of digestive tract; Z90.710 Acquired absence of both cervix and uterus; Z91.041 Radiographic dye allergy status
CPT/HCPCS: 99285; 96374; 96375; 71045; 84484; 80048; 83880; 85025; 81001; 36415; 93005; 94640; J2405; J2919; J1940

== ENCOUNTER 2024-05-04 13:35 | Emergency (ER) | payer OTHER, MEDICARE ==
[~2024-05-04] VITALS: Ht 157.5 cm; Wt 72.6 kg
[2024-05-04 14:19] VITALS: BP 92/58; PULSE 78; RESP 16; TEMP 98.5; O2SAT 96
== END 2024-05-04 14:57 | disposition left against medical advice (07) ==
LOC: EDH 13:35
DX: M54.9 Dorsalgia, unspecified (principal); Z53.21 Procedure and treatment not carried out due to patient leaving prior to being seen by health care provider